=== PATIENT | female | born 1965 | race Caucasian/White ===

== ENCOUNTER 2016-07-17 10:17 | Outpatient (CLI) | payer OTHER | END 2016-07-17 10:18 | disposition home or self-care (01) | DX: Z12.31 Encounter for screening mammogram for malignant neoplasm of breast (principal) ==

== ENCOUNTER 2017-10-31 08:50 | Outpatient (CLI) | payer OTHER ==
[2017-10-31 12:32] LABS: BASOPHILS % (AUTO) 0.6 %; EOSINOPHILS # (AUTO) 0.2 10^3/uL (0.0-0.7); EOSINOPHILS % (AUTO) 3.6 %; LYMPHOCYTES % (AUTO) 21.5 %; MEAN CORPUSCULAR HEMOGLOBIN 28.6 pg (27.0-31.0); MEAN CORPUSCULAR HGB CONC 33.4 g/dL (32.0-36.0); MEAN CORPUSCULAR VOLUME 85.6 fL (81.0-99.0); MEAN PLATELET VOLUME 10.2 fL (7.9-10.8); MONOCYTES # (AUTO) 0.4 10^3/uL (0.0-1.0); NEUTROPHILS % (AUTO) 66.3 %; PLT - PLATELET COUNT 218 10^3/uL (130-450); RED BLOOD COUNT 4.55 10^6/uL (4.20-5.40); RED CELL DISTRIBUTION WIDTH 14.9 % (12.0-15.0); WHITE BLOOD COUNT 4.5 x10^3/uL (4.8-10.8)
[2017-10-31 13:20] LABS: ALBUMIN 4.1 g/dL (3.2-5.5); ALBUMIN/GLOBULIN RATIO 1.2 (1.0-2.2); ALKALINE PHOSPHATASE 61 IU/L (42-121); ALT ALANINE AMINOTRANSFERASE 19 IU/L (10-60); AST ASPARTATE AMINOTRANSFERASE 17 IU/L (10-42); BILIRUBIN,TOTAL 0.5 mg/dL (0.2-1.0); BUN - BLOOD UREA NITROGEN 14 mg/dL (6-20); CALCIUM 9.4 mg/dL (8.5-10.3); CARBON DIOXIDE - CO2 24 mmol/L (21-32); CHLORIDE 108 mmol/L (101-111); CHOL/HDL RATIO 3.7 (<4.4); CHOLESTEROL 156 mg/dL; CREATININE 0.9 mg/dL (0.4-1.0); GFR - MDRD 66 (>89); GLUCOSE 94 mg/dL (70-100); HDL CHOLESTEROL 42 mg/dL; LDL CHOLESTEROL,CALCULATED 81 mg/dL; LDL/HDL RATIO 1.9 (<4.4); SODIUM 140 mmol/L (135-145); TOTAL PROTEIN 7.5 g/dL (6.7-8.2); VLDL CHOLESTEROL 33 mg/dL
== END 2017-10-31 08:51 | disposition home or self-care (01) ==
LOC: LAB.WCP 08:50
PROVIDERS: ATTEND Family Medicine
DX: Z00.00 Encounter for general adult medical examination without abnormal findings (principal); E78.5 Hyperlipidemia, unspecified
CPT/HCPCS: 36415; 80053; 80061; 83721; 84443; 85025

== ENCOUNTER 2017-11-07 08:34 | Outpatient (CLI) | payer OTHER ==
--- NOTE | 2017-11-10 09:27 | Mammography Report ---
Reason: SCREENING MAMMO Procedure Date: 11/07/2017 Accession Number: [id number] / [id number] Procedure: MGN - Screening Mammo Dig Bilat CPT Code: FULL RESULT: EXAM: Screening Mammo Dig Bilat DATE: 11/07/2017 8:55 AM CLINICAL HISTORY: 52-year-old female with history of needle core biopsy of the left breast with benign pathology results. TECHNIQUE: Bilateral CC and MLO views were obtained. COMPARISON: 07/17/2016, 10/10/2014, 07/26/2013, 04/17/2012. FINDINGS: The breasts demonstrate scattered fibroglandular densities bilaterally. A biopsy marker is seen in the left breast. No suspicious masses, clustered microcalcifications, or regions of architectural distortion are identified. IMPRESSION: Benign findings RECOMMENDATION: Routine annual screening unless otherwise clinically indicated. BIRADS CATEGORY 2: Benign findings STANDARD QUALIFYING STATEMENTS: 1. This examination was reviewed with the aid of Computer-Aided Detection (CAD). 2. A negative or benign imaging report should not delay biopsy if clinically suspicious findings are present. Consider surgical consultation if warrented. More than 5% of cancers are not identified by imaging. 3. Dense breasts may obscure an underlying neoplasm.
== END 2017-11-07 08:35 | disposition home or self-care (01) ==
LOC: DI.N 08:34
PROVIDERS: ATTEND Radiology Diagnostic Radiology
DX: Z12.31 Encounter for screening mammogram for malignant neoplasm of breast (principal)
CPT/HCPCS: 77067

== ENCOUNTER 2020-05-22 12:28 | Outpatient (CLI) | payer OTHER ==
--- NOTE | 2020-05-23 11:32 | Mammography Report ---
BILATERAL DIGITAL SCREENING MAMMOGRAM 3D/2D: 05/22/2020 CLINICAL: Routine screening. Comparison is made to exams dated: 11/07/2017 mammogram, 07/17/2016 mammogram, 10/10/2014 mammogram, 07/15 mammogram, 04/17/2012 mammogram, and 09/26/2009 mammogram - [facility]. There are scattered fibroglandular elements in both breasts. There is a biopsy clip in the left breast. No significant masses, calcifications, or other findings are seen in either breast. There has been no significant interval change. IMPRESSION: NEGATIVE There is no mammographic evidence of malignancy. A 1 year screening mammogram is recommended. This exam was interpreted at Station ID: [id number]. NOTE: For mammograms, a report in lay terms will be sent to the patient. Approximately 15% of breast malignancies will not be visualized mammographically. In the management of a palpable breast mass, a negative mammogram must not discourage biopsy of a clinically suspicious lesion. Electronically Signed By: Zac Grover M.D. [email or web address]/albin:05/22/2020 14:22:26 ACR BI-RADS Category 1: Negative 3341F PARENCHYMAL PATTERN: (A) - The breast(s) demonstrate(s) scattered fibroglandular densities. BI-RADS CATEGORY: (1) - 1 RECOMMENDATION: (ANNUAL) - Recommend routine annual screening mammography. [id number] 1 year screening LATERALITY: (B)
== END 2020-05-22 12:29 | disposition home or self-care (01) ==
LOC: DI.N 12:28
DX: Z12.31 Encounter for screening mammogram for malignant neoplasm of breast (principal)

== ENCOUNTER 2020-07-08 14:28 | Emergency (ER) | payer OTHER ==
[2020-07-08] MEDS ORDERED: SODIUM CHLORIDE 0.9% 1,000 ML IV STA (15:07)
[2020-07-08] MEDS ORDERED: DEXAMETHASONE 10 MG/ML VIAL IVP STA (15:08)
[2020-07-08] MEDS ORDERED: KETOROLAC 30 MG/ML VIAL IVP STA (15:08)
--- NOTE | 2020-07-08 15:10 | ED Physician Documentation ---
History of Present Illness - Stated complaint Stated Complaint: C+ SYMPTOMS - History obtained from History obtained from: Patient - Additonal information Additional information: Her recently tested positive for Covid. She became sick 6 days ago with fevers, chills, minimally productive cough, body aches generalized weakness. She denies shortness of breath. She has no significant health issues. Her BMI is 32.5. Review of Systems Constitutional: reports: Fever, Chills, Myalgias, Fatigue Nose: denies: Rhinorrhea / runny nose Throat: denies: Sore throat Respiratory: reports: Cough. denies: Dyspnea PD PAST MEDICAL HISTORY - Present Medications Home Medications: Ambulatory Orders Medication Instructions Recorded Confirmed HYDROcod/ACETAM 5/325 [[place] 5/325] 1 - 2 tab PO Q6H PRN #15 tablet 07/08/20 Ibuprofen [Motrin] 800 mg PO Q8H PRN #30 tablet 07/08/20 Lovastatin [Altoprev] 20 mg PO DAILY 07/08/20 07/08/20 Omeprazole 40 mg PO DAILY 07/08/20 07/08/20 - Allergies Allergies/Adverse Reactions: Allergies Allergy/AdvReac Type Severity Reaction Status Date / Time No Known Drug Allergies Allergy Verified 07/08/20 15:18 PD ED PE NORMAL - Vitals Vital signs reviewed: Yes - General General: Alert and oriented X 3, No acute distress - Neck Neck: Supple, no meningeal sign, No bony TTP - Back Back: No CVA TTP, No spinal TTP - Derm Derm: Normal color, Warm and dry - Extremities Extremities: No edema, No calf tenderness / cord - Neuro Neuro: Alert and oriented X 3, Normal speech Results - Vitals Vitals: Vital Signs - 24 hr 07/08/20 07/08/20 15:09 15:13 Temperature 37.3 C Heart Rate 82 76 Respiratory 25 H 23 Rate Blood Pressure 108/85 H 111/83 H O2 Saturation 96 99 Oxygen O2 Source Room air - Labs Labs: Laboratory Tests 07/08/20 07/08/20 07/08/20 14:52 14:52 14:52 WBC 4.2 L RBC 5.53 H Hgb 15.9 Hct 48.7 H MCV 88.1 MCH 28.8 MCHC 32.6 RDW 13.2 Plt Count 112 L MPV 12.1 H Neut # (Auto) 3.1 Lymph # (Auto) 0.7 L [place] # (Auto) 0.4 Eos # (Auto) 0.0 Baso # (Auto) 0.0 Absolute Nucleated RBC 0.00 Nucleated RBC % 0.0 Sodium 136 Potassium 3.9 Chloride 103 Carbon Dioxide 23 Anion Gap 10.0 BUN 11 Creatinine 0.8 Estimated GFR (MDRD) 75 L Glucose 102 H Calcium 8.9 Nasal Adenovirus (PCR) NOT DETECTED Nasal B. parapertussis DNA (PCR) NOT DETECTED Nasal Coronavir 229E PCR NOT DETECTED Nasal Coronavir HKU1 PCR NOT DETECTED Nasal Coronavir NL63 PCR NOT DETECTED Nasal Coronavir OC43 PCR NOT DETECTED Nasal Enterovir/Rhinovir PCR NOT DETECTED Nasal Influenza B PCR NOT DETECTED Nasal Influenza A PCR NOT DETECTED Nasal Parainfluen 1 PCR NOT DETECTED Nasal Parainfluen 2 PCR NOT DETECTED Nasal Parainfluen 3 PCR NOT DETECTED Nasal Parainfluen 4 PCR NOT DETECTED Nasal RSV (PCR) NOT DETECTED Nasal B.pertussis DNA PCR NOT DETECTED Nasal C.pneumoniae (PCR) NOT DETECTED [place] Human Metapneumo PCR NOT DETECTED Nasal M.pneumoniae (PCR) NOT DETECTED Nasal SARS-CoV-2 (PCR) DETECTED A - Rads (name of study) 1v chest Radiology: EMP read contemporaneously (normal) PD MEDICAL DECISION MAKING - ED course ED course: 55-year-old woman with likely COVID-19, will test for same and watch her for a bit on the monitor. She is not hypoxic though and denies shortness of breath. She does not fit NIH criteria for Mab therapy. 55-year-old woman with classic symptoms of Covid and found to be positive for same. No evidence of Covid pneumonia. Labs are as expected for the condition with expected lymphopenia. Departure - Departure Disposition: 01 Home, Self Care Clinical Impression: COVID-19 Condition: Good Record reviewed to determine appropriate education?: Yes Instructions: ED Viral Syndrome Prescriptions: Ibuprofen [Motrin] 800 mg PO Q8H PRN #30 tablet PRN Reason: PAIN &/OR FEVER HYDROcod/ACETAM 5/325 [[place] 5/325] 1 - 2 tab PO Q6H PRN #15 tablet PRN Reason: Pain Comments: Return if you develop shortness of breath or otherwise worsen. Follow CDC guidelines for strict home quarantine. Forms: Activity restrictions
[2020-07-08 15:20] LABS: EOSINOPHILS % (AUTO) 0.2 %; HCT - HEMATOCRIT 48.7 % (37.0-47.0); HGB - HEMOGLOBIN 15.9 g/dL (12.0-16.0); LYMPHOCYTES # (AUTO) 0.7 10^3/uL (1.5-3.5); LYMPHOCYTES % (AUTO) 16.6 %; MEAN CORPUSCULAR HEMOGLOBIN 28.8 pg (27.0-31.0); MEAN CORPUSCULAR HGB CONC 32.6 g/dL (32.0-36.0); MEAN CORPUSCULAR VOLUME 88.1 fL (81.0-99.0); MEAN PLATELET VOLUME 12.1 fL (7.9-10.8); MONOCYTES # (AUTO) 0.4 10^3/uL (0.0-1.0); MONOCYTES % (AUTO) 8.7 %; NEUTROPHILS # (AUTO) 3.1 10^3/uL (1.5-6.6); NEUTROPHILS % (AUTO) 74.3 %; PLT - PLATELET COUNT 112 10^3/uL (130-450); RED BLOOD COUNT 5.53 10^6/uL (4.20-5.40); RED CELL DISTRIBUTION WIDTH 13.2 % (12.0-15.0); WHITE BLOOD COUNT 4.2 x10^3/uL (4.8-10.8)
[2020-07-08 15:25] LABS: CALCIUM 8.9 mg/dL (8.5-10.3); CREATININE 0.8 mg/dL (0.4-1.0); POTASSIUM 3.9 mmol/L (3.5-5.0)
--- NOTE | 2020-07-08 16:06 | XRAY Report ---
PROCEDURE: Chest 1 View X-Ray INDICATIONS: cough TECHNIQUE: One view of the chest was acquired. COMPARISON: None FINDINGS: Surgical changes and devices: None. Lungs and pleura: An incomplete inspiratory result is noted, with low lung volumes and crowding of t he vascular markings. No focal infiltrates are seen. No large pneumothorax or large pleural effusion can be seen. Mediastinum: Mediastinal contours appear normal. Heart size is normal. Bones and chest wall: No suspicious bony lesions. Overlying soft tissues appear unremarkable. IMPRESSION: Limited portable chest examination, without an acute abnormality identified. Reviewed by: Vitor Harper MD on 07/08/2020 3:05 PM DREW Approved by: Vitor Harper MD on 07/08/2020 3:05 PM DREW Station ID: [id number]
[2020-07-08 16:11] LABS: CORONAVIRUS 229E-RESP PCR NOT DETECTED; CORONAVIRUS HKU1-RESP PCR NOT DETECTED; CORONAVIRUS NL63-RESP PCR NOT DETECTED; CORONAVIRUS OC43-RESP PCR NOT DETECTED
[2020-07-08 16:13] LABS: B. PARAPERTUSSIS- RESP PCR PAN NOT DETECTED; B. PERTUSSIS- RESP PCR PANEL NOT DETECTED; C. PNEUMONIAE- RESP PCR PANEL NOT DETECTED; HUMAN METAPNEUMOVIRUS NOT DETECTED; INFLUENZA A- RESP PCR PANEL NOT DETECTED; INFLUENZA B - RESP PCR PANEL NOT DETECTED; M. PNEUMONIAE- RESP PCR PANEL NOT DETECTED; PARAINFLUENZA VIRUS 1 NOT DETECTED; PARAINFLUENZA VIRUS 2 NOT DETECTED; PARAINFLUENZA VIRUS 3 NOT DETECTED; PARAINFLUENZA VIRUS 4 NOT DETECTED; RHINOVIRUS/ENTEROVIRUS NOT DETECTED; RSV- RESP PCR PANEL NOT DETECTED; SARS-CoV-2 -RESP PCR PANEL DETECTED
[2020-07-08 17:13] VITALS: BP 106/75
== END 2020-07-08 17:20 | disposition home or self-care (01) ==
LOC: ED 14:28
DX: U07.1 COVID-19 (principal)
CPT/HCPCS: 0202U; 36415; 71045; 80048; 85025; 96374; 99284

== ENCOUNTER 2020-07-11 15:29 | Outpatient (CLI) | payer OTHER | END 2020-07-11 15:30 | disposition critical access hospital (66) | LOC: EMS 15:29 | DX: R53.1 Weakness (principal); R55 Syncope and collapse | CPT/HCPCS: A0425; A0429 ==

== ENCOUNTER 2020-07-11 15:57 | Inpatient (IN) | payer OTHER ==
[2020-07-11] MEDS ORDERED: ONDANSETRON 4 MG/2 ML VIAL IVP STA (16:12)
[2020-07-11] MEDS ORDERED: SODIUM CHLORIDE 0.9% 1,000 ML IV STA ×2 (16:12→16:13)
--- NOTE | 2020-07-11 16:18 | ED Physician Documentation ---
History of Present Illness - Stated complaint Stated Complaint: WEAKNESS/COV + - Additonal information Additional information: 55-year-old female presents the emergency department with worsening Covid symptoms generalized weakness and near syncope. She became sick about 9 to 10 d ays ago. Her had tested positive for COVID-19. She was seen in this ER 3 days ago for similar discharged home. Patient reports that since going home she feels persistently weak very little appetite multiple near syncopal episodes especially with ambulation. She is short of breath with ambulating. Here on room air she has saturations between 90 and 93%. She does endorse a cough but no fevers. Generalized myalgias. Patient does not have a history of diabetes, chronic kidney disease or immune suppression. Meds: Omeprazole, Lipitor. Social: Non-smoker. Rare EtOH. Review of Systems Constitutional: reports: Chills, Myalgias. denies: Fever Eyes: reports: Reviewed and negative Ears: reports: Reviewed and negative Nose: reports: Reviewed and negative Throat: reports: Dental pain / toothache Cardiac: reports: Reviewed and negative Respiratory: reports: Dyspnea, Cough. denies: Hemoptysis, Wheezing GI: reports: Nausea. denies: Abdominal Pain, Vomiting, Constipation, Diarrhea : denies: Dysuria, Frequency, Hesitancy Skin: denies: Rash, Lesions Musculoskeletal: denies: Neck pain, Back pain Neurologic: reports: Generalized weakness. denies: Focal weakness, Numbness, Difficulty speaking, Near syncope, Syncope, Seizure, Confused, Headache, Head injury PD PAST MEDICAL HISTORY - Past Medical History Cardiovascular: High cholesterol GI: GERD - Past Surgical History Past Surgical History: No - Present Medications Home Medications: Ambulatory Orders Medication Instructions Recorded Confirmed HYDROcod/ACETAM 5/325 [[place] 5/325] 1 - 2 tab PO Q6H PRN #15 tablet 07/08/20 07/11/20 Ibuprofen [Motrin] 800 mg PO Q8H PRN #30 tablet 07/08/20 07/11/20 Lovastatin [Altoprev] 20 mg PO DAILY 07/08/20 07/11/20 Omeprazole 40 mg PO DAILY 07/08/20 07/11/20 - Allergies Allergies/Adverse Reactions: Allergies Allergy/AdvReac Type Severity Reaction Status Date / Time No Known Drug Allergies Allergy Verified 07/08/20 15:18 - Social History Does the pt smoke?: No Smoking Status: Never smoker Does the pt drink ETOH?: No Does the pt have substance abuse?: No - Immunizations Immunizations are current?: Yes PD ED PE EXPANDED - General General: Alert - Cardiac Cardiac: Regular Rate, Tachy, Radial strong equal, Pedal strong equal, Cap refill < 2 sec - Respiratory Respiratory: Clear to ausultation sabine, Other (Mild tachypnea. Respiratory rate of 30. Saturating 92% room air.). No: Distress, Labored - Abdomen Abdomen: Normal Bowel sounds. No: Tender to palpation - Derm Derm: Normal color, Warm and dry, Cyanotic (mildly around lips). No: Pale, Jaundiced - Extremities Extremities: Normal. No: Deformity, Tenderness - Neuro Neuro: Alert and Oriented X 3, CNII-XII intact - GCS Eye Opening: Spontaneous Motor: Obeys Commands Verbal: Oriented Total: 15 Results - Vitals Vitals: Vital Signs - 24 hr 07/11/20 07/11/20 07/11/20 15:51 16:35 16:50 Temperature 37.1 C Heart Rate 107 H 104 H 104 H Respiratory 32 H 30 H 26 H Rate Blood Pressure 124/81 H 118/67 105/74 O2 Saturation 90 L 93 95 07/11/20 17:22 Temperature Heart Rate 101 H Respiratory 31 H Rate Blood Pressure 99/66 O2 Saturation 93 Oxygen O2 Source Room air - Labs Labs: Laboratory Tests 07/11/20 07/11/20 07/11/20 16:25 16:42 16:42 WBC 10.1 RBC 5.69 H Hgb 16.0 Hct 50.6 H MCV 88.9 MCH 28.1 MCHC 31.6 L RDW 14.1 Plt Count 162 MPV 11.6 H Neut # (Auto) 9.0 H Lymph # (Auto) 0.5 L [place] # (Auto) 0.5 Eos # (Auto) 0.0 Baso # (Auto) 0.0 Absolute Nucleated RBC 0.00 Nucleated RBC % 0.0 Sodium 135 Potassium 4.2 Chloride 100 L Carbon Dioxide 23 Anion Gap 12.0 BUN 14 Creatinine 0.8 Estimated GFR (MDRD) 75 L Glucose 109 H Calcium 8.6 Total Bilirubin 0.8 AST 48 H ALT 26 Alkaline Phosphatase 44 Total Protein 6.3 L Albumin 2.9 L Globulin 3.4 Albumin/Globulin Ratio 0.9 L Lipase 26 Ethyl Alcohol < 5.0 PD MEDICAL DECISION MAKING - ED course Complexity details: reviewed results, re-evaluated patient, d/w patient ED course: 55-year-old female who is known to be COVID-19 positive presents the emergency department with worsening shortness of air near syncope generalized weakness and nausea. She presented here are on room air with a saturation of 90%. With any activity or minimal exertion her saturations declined into the high 80s. Chest x-ray suggests an early atypical pneumonia or pulmonary edema. She does not have fever or leukocytosis but she is moderately tachypneic. Given worsening symptoms in the setting of COVID-19 we will bring her in for further observation and evaluation. Unfortunately she does not meet criteria for monoclonal antibodies she is not considered high risk. I discussed this case with Dr. Boles admitting hospitalist Departure - Departure Disposition: 66 [facility] DC/Xfer Clinical Impression: COVID-19, Hypoxia Discharge Date/Time: 07/11/20 18:20
[2020-07-11 16:31] LABS: BASOPHILS % (AUTO) 0.2 %; HCT - HEMATOCRIT 50.6 % (37.0-47.0); LYMPHOCYTES # (AUTO) 0.5 10^3/uL (1.5-3.5); LYMPHOCYTES % (AUTO) 5.1 %; MEAN CORPUSCULAR HEMOGLOBIN 28.1 pg (27.0-31.0); MEAN CORPUSCULAR HGB CONC 31.6 g/dL (32.0-36.0); MEAN CORPUSCULAR VOLUME 88.9 fL (81.0-99.0); MEAN PLATELET VOLUME 11.6 fL (7.9-10.8); MONOCYTES # (AUTO) 0.5 10^3/uL (0.0-1.0); MONOCYTES % (AUTO) 5.3 %; NEUTROPHILS % (AUTO) 88.8 %; PLT - PLATELET COUNT 162 10^3/uL (130-450); RED BLOOD COUNT 5.69 10^6/uL (4.20-5.40); RED CELL DISTRIBUTION WIDTH 14.1 % (12.0-15.0); WHITE BLOOD COUNT 10.1 x10^3/uL (4.8-10.8)
--- NOTE | 2020-07-11 16:48 | XRAY Report ---
PROCEDURE: Chest 1 View X-Ray INDICATIONS: chest pain TECHNIQUE: One view of the chest was acquired. COMPARISON: 07/08/2020 FINDINGS: Surgical changes and devices: None. Lungs and pleura: No pleural effusions or pneumothorax. Lungs are mildly edematous. Mediastinum: Mediastinal contours appear normal. Heart size is normal. Bones and chest wall: No suspicious bony lesions. Overlying soft tissues appear unremarkable. IMPRESSION: The appearance of the lung parenchyma is mildly edematous, having increased in this pattern of alveol ar edema from the comparison study to a mild degree from 3 days ago. Atypical pneumonia could be pres ent producing this appearance. However, acute CHF without cardiomegaly is a potential alternative cau se. Reviewed by: Constantine Bazan MD on 07/11/2020 4:47 PM PDT Approved by: Constantine Bazan MD on 07/11/2020 4:47 PM PDT Station ID: [id number]
[2020-07-11 17:00] LABS: ALBUMIN 2.9 g/dL (3.2-5.5); ALBUMIN/GLOBULIN RATIO 0.9 (1.0-2.2); BILIRUBIN,TOTAL 0.8 mg/dL (0.2-1.0); CALCIUM 8.6 mg/dL (8.5-10.3); CREATININE 0.8 mg/dL (0.4-1.0); POTASSIUM 4.2 mmol/L (3.5-5.0); TOTAL PROTEIN 6.3 g/dL (6.7-8.2)
[2020-07-11] MEDS ORDERED: SODIUM CHLORIDE FLUSH 0.9% 10 ML SYRINGE IVP PRN (17:33)
[2020-07-11] MEDS ORDERED: oxyCODONE 5 MG TABLET PO PRN (17:33)
[2020-07-11] MEDS ORDERED: ONDANSETRON ODT 4 MG TABLET TL PRN (17:33)
[2020-07-11] MEDS ORDERED: ACETAMINOPHEN 325 MG TABLET PO PRN (17:33)
[2020-07-11] MEDS ORDERED: IBUPROFEN 400 MG TABLET PO PRN (17:33)
[2020-07-11] MEDS ORDERED: DEXTROSE 5% IV SCH (17:45)
[2020-07-11] MEDS ORDERED: [UNRECOGNIZED DRUG - OTHER] IV SCH (17:45)
--- OUTSIDE RECORDS SUMMARY | 2020-07-11 18:03 | EXTERNAL MEDICAL SUMMARY RPT | Continuity of Care Document ---
:1965 Demographics Phone Unavailable Preferred Language Unknown Marital Status Unknown Cheondoism Affiliation Unknown Race Unknown Ethnic Group Unknown Author Organization [facility] Address [address] [place] [address] Phone Social History date description facility [phone]
--- NOTE | 2020-07-11 18:10 | HISTORY & PHYSICAL EXAMINATION ---
Chief Complaint - Chief Complaint Chief Complaint: shortness of breath History of Present Illness - Admitted From Admitted From:: ER - History Obtained From Records Reviewed: [facility] History obtained from: pt Exam Limitations: no - History of Present Illness HPI Comment/Other: This is a 55-years old female with a past medical history significant for hyperlipidemia, GERD, who present ER complain of shortness of breath, worsening Covid symptoms. Patient report last Friday she present to ER showing shortness breathing then she tested positive for the COVID-19. Her was Positive in July 03, then her son show positive. Her all 13 colleague were Covid 19 positive after one person traveled back from [place]. she report she had fever, chill and night sweating at home. her and her son both became better but she continue shortness of breath and worsening symptoms. she present cough, specially felt significant shortness of breath when she was at exertion. she report nausea but no vomiting, loss of appetite. She denies chest pain, abdominal pain, vomiting. IN ER, she is afebrile, HR is 107, normative blood pressure, RR 32 and 90% sats on room air. Route lab test show pt was Covid 19 positive at 07/08/20, other CBC and CMP are unremarkable. CXR reveals atypical pneumonia appearance. Discussed the care goal with pt, pt request full code. History - Past Medical History Cardiovascular: reports: High cholesterol GI: reports: GERD MRSA Hx?: No - Family & Social History Family History: Mother: Alive and Well Family History Comment/Other: Patient report she was Unknown her father medical history, she reported her mother has diabetic medical history Social History Notes: She report she has never cigarette smoking, alcohol or drug issue - POLST Patient has POLST: No Meds/Allgy - Home Medications Home Medications: Ambulatory Orders Medication Instructions Recorded Confirmed HYDROcod/ACETAM 5/325 [[place] 5/325] 1 - 2 tab PO Q6H PRN #15 tablet 07/08/20 07/11/20 Ibuprofen [Motrin] 800 mg PO Q8H PRN #30 tablet 07/08/20 07/11/20 Lovastatin [Altoprev] 20 mg PO DAILY 07/08/20 07/11/20 Omeprazole 40 mg PO DAILY 07/08/20 07/11/20 - Allergies Allergies/Adverse Reactions: Allergies Allergy/AdvReac Type Severity Reaction Status Date / Time No Known Drug Allergies Allergy Verified 07/08/20 15:18 Review of Systems - Constitutional Constitutional: reports: Fatigue, Fever, Chills, Malaise, Poor appetite, Night sweats. denies: Weakness, Diaphoresis - Eyes Eyes: denies: Pain, Blurred vision, Field loss, Vision loss - Ears, Nose & Throat Ears, Nose & Throat: denies: Ear pain, Tinnitus, Vertigo, Nosebleeds, Bleeding gums - Cardiovascular Cariovascular: denies: Irregular heart rate, Palpitations, Chest pain - Respiratory Respiratory: reports: Cough, Sputum production, SOB with exertion. denies: Wheezing, Snoring, Hemoptysis, Orthopnea, SOB at rest, Apnea - Gastrointestinal Gastrointestinal: reports: Nausea. denies: Abdominal pain, Constipation, Diarrhea, Rectal bleeding, Black stools, Bloody stools, Vomiting - Genitourinary Genitourinary: denies: Dysuria, Urgency, Incontinence - Musculoskeletal Musculoskeletal: denies: Back pain, Muscle aches, Limited range of motion - Integumentary Integumentary: denies: Rash, Dryness, Lumps - Neurological Neurological: denies: General weakness, Focal weakness, Headache, Dizziness, Numbness, Memory problems, Abnormal gait, Seizures, Incoordination, Slurred speech - Psychiatric Psychiatric: denies: Depression, Suicidal, Delusions - Endocrine Endocrine: denies: Polyuria, Polyphagia - Hematologic/Lymphatic Hematologic/Lymphatic: denies: Anemia, Blood clots Prior Level of Functionality: Patient is independent in the home Exam - Vital Signs Vital Signs: Vital Signs x48h Temp Pulse Resp BP Pulse Ox 07/11/20 17:22 101 H 31 H 99/66 93 07/11/20 16:50 104 H 26 H 105/74 95 07/11/20 16:35 104 H 30 H 118/67 93 07/11/20 15:51 37.1 C 107 H 32 H 124/81 H 90 L - Physical Exam General Appearance: positive: Alert, Mild distress. negative: Lethargic Eyes Bilateral: positive: Normal inspection, PERRL, No lid inflammation ENT: positive: ENT inspection nml, No signs of dehydration. negative: Purulent nasal drainage Neck: positive: Nml inspection, Trachea midline. negative: Thyromegaly, Tracheal deviation Respiratory: positive: Chest non-tender, Rales. negative: No respiratory distress, Breath sounds nml, Wheezes Cardiovascular: positive: Regular rate & rhythm, No murmur, Tachycardia. negative: Bradycardia, Systolic murmur, Diastolic murmur Peripheral Pulses: positive: 2+ Abdomen: positive: Non-tender, Nml bowel sounds, No distention. negative: Tenderness Back: positive: Nml inspection Skin: positive: Color nml, Warm, Dry. negative: Cyanosis, Diaphoresis, Pallor Extremities: positive: Non-tender, Nml appearance. negative: Pedal edema Neurologic/Psychiatric: positive: Oriented x3, Motor nml, Sensation nml, Mood/affect nml. negative: Weakness, Sensory loss, Facial droop, Slurred/abnml speech, Depressed mood/affect Conclusion/Plan - Problem List (1) Respiratory failure with hypoxia Conclusion/Plan: pt present shortness of breath specially at exertion. pt has 90% sats on room air with RR 32, and mild tachycardia, and pt is Covid 19 positive. 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 we will order Remdesivir, Decatron, and Lovenox, Supplemental oxygen as needed, intravenous IV fluids. isolation precaution per Covid 19. (3) HLD (hyperlipidemia) Conclusion/Plan: Will resume home statin. (4) GERD (gastroesophageal reflux disease) Conclusion/Plan: Resume patient's home meds, PPI - Lab Results Fish Bones: 07/11/20 16:25 07/11/20 16:42 Core Measures - Anticipated LOS I expect patient to be DC'd or transferred within 96 hours.: Yes - DVT/VTE - Prophylaxis VTE/DVT Device ordered at admit?: Yes VTE/DVT Prophylaxis med ordered at admit?: Yes
[2020-07-11] MEDS ORDERED: REMDESIVIR 100MG VIAL 200 MG in SODIUM CHLORIDE 0.9% 250 ML IV ONE (19:00)
[2020-07-11] MEDS: SODIUM CHLORIDE 0.9% 1,000 ML IV SCH (19:15)
[2020-07-11 19:31] LABS: BILIRUBIN,URINE NEGATIVE (NEGATIVE); GLUCOSE, URINE (UA) NEGATIVE (NEGATIVE); KETONES,URINE (UA) 40 mg/dL (NEGATIVE); LEUKOCYTE ESTERASE, URINE NEGATIVE (NEGATIVE); NITRITE,URINE NEGATIVE (NEGATIVE); OCCULT BLOOD,URINE SMALL (NEGATIVE); PROTEIN,URINE 30 mg/dL (NEGATIVE); UROBILINOGEN,URINE 1 (NORMAL) E.U./dL (NORMAL)
[2020-07-11 19:35] LABS: CLARITY,URINE HAZY (CLEAR)
[2020-07-11 19:42] LABS: BACTERIA,URINE Few /HPF (None Seen); MUCUS,URINE Few Strands; RBC,URINE 0-5 /HPF (0-5); SQUAMOUS EPITHELIAL CELL,UR FEW Squamous (<= Few); WBC,URINE 0-3 /HPF (0-5)
[2020-07-11] MEDS: ONDANSETRON 4 MG/2 ML VIAL IVP PRN (20:22)
[2020-07-11] MEDS: ATORVASTATIN 10 MG TABLET PO SCH (20:28)
[2020-07-12] MEDS: SODIUM CHLORIDE FLUSH 0.9% 10 ML SYRINGE IVP SCH ×3 (04:24→16:08)
[2020-07-12] MEDS: ONDANSETRON 4 MG/2 ML VIAL IVP PRN (04:25)
[2020-07-12] MEDS: SODIUM CHLORIDE 0.9% 1,000 ML IV SCH ×2 (05:19→16:08)
[2020-07-12 05:39] LABS: BASOPHILS % (AUTO) 0.1 %; HCT - HEMATOCRIT 42.9 % (37.0-47.0); HGB - HEMOGLOBIN 13.8 g/dL (12.0-16.0); LYMPHOCYTES # (AUTO) 0.6 10^3/uL (1.5-3.5); LYMPHOCYTES % (AUTO) 7.3 %; MEAN CORPUSCULAR HEMOGLOBIN 28.8 pg (27.0-31.0); MEAN CORPUSCULAR HGB CONC 32.2 g/dL (32.0-36.0); MEAN CORPUSCULAR VOLUME 89.4 fL (81.0-99.0); MEAN PLATELET VOLUME 11.4 fL (7.9-10.8); MONOCYTES # (AUTO) 0.6 10^3/uL (0.0-1.0); NEUTROPHILS % (AUTO) 85.1 %; PLT - PLATELET COUNT 162 10^3/uL (130-450); RED CELL DISTRIBUTION WIDTH 14.3 % (12.0-15.0); WHITE BLOOD COUNT 8.3 x10^3/uL (4.8-10.8)
[2020-07-12 05:47] LABS: CALCIUM 7.6 mg/dL (8.5-10.3); CREATININE 0.7 mg/dL (0.4-1.0); POTASSIUM 3.8 mmol/L (3.5-5.0)
[2020-07-12] MEDS: PANTOPRAZOLE 40 MG TABLET PO SCH (06:35)
[2020-07-12] MEDS: ENOXAPARIN 40 MG/0.4 ML SYRINGE SUBQ SCH (08:26)
[2020-07-12] MEDS: DEXAMETHASONE 4 MG/ML VIAL IVP SCH (08:26)
--- NOTE | 2020-07-12 14:58 | PROVIDER PROGRESS NOTE ---
Assessment/Plan - Problem List (1) Respiratory failure with hypoxia Assessment/Plan: 07/12 pt has no respiratory distress at rest but distressful on exertion. now pt has 94% on 3 liter of O2, and comfortable rest in the bed. pt still some nausea and poor appetite now. will advance her diet as tolerated. continue Remdesivir, Decatron, and Lovenox, Continue supplemental oxygen as needed, continue closely monitor patient with vital signs. pt present shortness of breath specially at exertion. pt has 90% sats on room air with RR 32, and mild tachycardia, and pt is Covid 19 positive. 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 we will order Remdesivir, Decatron, and Lovenox, Supplemental oxygen as needed, intravenous IV fluids. isolation precaution per Covid 19. (3) HLD (hyperlipidemia) Conclusion/Plan: Will resume home statin. (4) GERD (gastroesophageal reflux disease) Conclusion/Plan: Resume patient's home meds, PPI - Current Meds Current Meds: Current Medications Generic Name Dose Route Start Last Admin Trade Name Freq PRN Reason Stop Dose Admin Atorvastatin Calcium 10 mg 07/11/20 21:00 07/11/20 20:28 Atorvastatin 10 Mg Tablet PO Not Given QPM EMANUEL Dexamethasone 6 mg 07/12/20 09:00 07/12/20 08:26 Dexamethasone 4 Mg/Ml Vial IVP 6 mg DAILY EMANUEL Administration Enoxaparin Sodium 40 mg 07/12/20 09:00 07/12/20 08:26 Enoxaparin 40 Mg/0.4 Ml Syringe SUBQ 40 mg DAILY EMNAUEL Administration Ibuprofen 400 mg 07/11/20 17:33 07/11/20 19:11 Ibuprofen 400 Mg Tablet PO 400 mg Q4HR PRN Administration Pain 1 to 4 Ondansetron HCl 4 mg 07/11/20 17:33 07/12/20 04:25 Ondansetron 4 Mg/2 Ml Vial IVP 4 mg Q6HR PRN Administration Nausea / Vomiting Oxycodone HCl 5 mg 07/11/20 17:33 07/12/20 05:20 Oxycodone 5 Mg Tablet PO 5 mg Q4HR PRN Administration Pain 5 to 7 Pantoprazole Sodium 40 mg 07/12/20 07:00 07/12/20 06:35 Pantoprazole 40 Mg Tablet PO 40 mg QDAC EMANUEL Administration Sodium Chloride 10 ml 07/12/20 01:00 07/12/20 08:27 Sodium Chloride Flush 0.9% 10 Ml Syringe IVP 10 ml 0100,0900,1700 EMANUEL Administration - Lab Result Fish Bone Diagrams: 07/12/20 04:55 07/12/20 04:55 - Additional Planning My Orders: My Active Orders 07/11/20 18:33 Infection Precautions [RC] QSHIFT 07/11/20 21:00 Atorvastatin [Lipitor] 10 mg PO QPM 07/12/20 Breakfast Full Liquid Diet [DIET] 07/12/20 07:00 Pantoprazole [Protonix] 40 mg PO QDAC 07/12/20 09:00 Enoxaparin [Lovenox] 40 mg SUBQ DAILY Subjective - Subjective Patient Reports: Feeling Better Objective Vital Signs: Vital Signs - 24 hr 07/11/20 07/11/20 07/11/20 15:51 16:35 16:50 Temperature 37.1 C Heart Rate 107 H 104 H 104 H Heart Rate [ Brachial] Heart Rate [ Carotid] Respiratory 32 H 30 H 26 H Rate Blood Pressure 124/81 H 118/67 105/74 Blood Pressure [Left Brachial artery] O2 Saturation 90 L 93 95 07/11/20 07/11/20 07/11/20 17:22 18:14 18:28 Temperature 36.8 C Heart Rate 101 H 104 H Heart Rate [ Brachial] Heart Rate [ 91 Carotid] Respiratory 31 H 20 20 Rate Blood Pressure 99/66 105/81 H Blood Pressure 94/75 [Left Brachial artery] O2 Saturation 93 95 97 07/11/20 07/11/20 07/12/20 20:20 20:26 00:00 Temperature 37 C 36.4 C L Heart Rate Heart Rate [ 92 98 Brachial] Heart Rate [ 99 Carotid] Respiratory 16 22 Rate Blood Pressure Blood Pressure 108/66 101/65 [Left Brachial artery] O2 Saturation 92 98 04/07/12/20 07/12/20 05:25 08:15 08:24 Temperature 36.7 C 36.7 C 36.8 C Heart Rate 92 Heart Rate [ 92 97 Brachial] Heart Rate [ Carotid] Respiratory 22 20 Rate Blood Pressure Blood Pressure 111/67 114/65 [Left Brachial artery] O2 Saturation 95 98 92 07/12/20 07/12/20 07/12/20 11:06 12:28 13:55 Temperature 36.6 C 37.1 C Heart Rate Heart Rate [ 87 90 93 Brachial] Heart Rate [ Carotid] Respiratory 20 20 Rate Blood Pressure Blood Pressure 126/70 111/79 [Left Brachial artery] O2 Saturation 92 94 94 Oxygen O2 Source Nasal cannula I&O (Last 24 Hrs): Intake and Output Totals x24h 07/10/20 07/11/20 07/12/20 23:59 23:59 23:59 Intake Total 2750 2496.667 Output Total 800 2100 Balance 1950 396.667 General: Alert, Oriented x3, Cooperative, No acute distress HEENT: Atraumatic, PERRLA Neck: Supple Lymphatic: no adenopathy Neuro: Alert, Non Focal, Oriented Times 3 Cardiovascular: Regular rate, Normal S1, Normal S2 Respiratory: Chest non-tender, No respiratory distress Abdomen: Normal bowel sounds, Soft, No tenderness Extremities: Normal pulses - Results Results: Laboratory Results WBC 8.3 x10^3/uL (4.8-10.8) 07/12/20 04:55 RBC 4.80 10^6/uL (4.20-5.40) 07/12/20 04:55 Hgb 13.8 g/dL (12.0-16.0) 07/12/20 04:55 Hct 42.9 % (37.0-47.0) 07/12/20 04:55 MCV 89.4 fL (81.0-99.0) 07/12/20 04:55 MCH 28.8 pg (27.0-31.0) 07/12/20 04:55 MCHC 32.2 g/dL (32.0-36.0) 07/12/20 04:55 RDW 14.3 % (12.0-15.0) 07/12/20 04:55 Plt Count 162 10^3/uL (130-450) 07/12/20 04:55 MPV 11.4 fL (7.9-10.8) H 07/12/20 04:55 Neut # (Auto) 7.0 10^3/uL (1.5-6.6) H 07/12/20 04:55 Lymph # (Auto) 0.6 10^3/uL (1.5-3.5) L 07/12/20 04:55 [place] # (Auto) 0.6 10^3/uL (0.0-1.0) 07/12/20 04:55 Eos # (Auto) 0.0 10^3/uL (0.0-0.7) 07/12/20 04:55 Baso # (Auto) 0.0 10^3/uL (0.0-0.1) 07/12/20 04:55 Absolute Nucleated RBC 0.00 x10^3/uL 07/12/20 04:55 Nucleated RBC % 0.0 /100WBC 07/12/20 04:55 Sodium 135 mmol/L (135-145) 07/12/20 04:55 Potassium 3.8 mmol/L (3.5-5.0) 07/12/20 04:55 Chloride 104 mmol/L (101-111) 07/12/20 04:55 Carbon Dioxide 23 mmol/L (21-32) 07/12/20 04:55 Anion Gap 8.0 (6-13) 07/12/20 04:55 BUN 11 mg/dL (6-20) 07/12/20 04:55 Creatinine 0.7 mg/dL (0.4-1.0) 07/12/20 04:55 Estimated GFR (MDRD) 88 (>89) L 07/12/20 04:55 Glucose 104 mg/dL (70-100) H 07/12/20 04:55 Calcium 7.6 mg/dL (8.5-10.3) L 07/12/20 04:55 Total Bilirubin 0.8 mg/dL (0.2-1.0) 07/11/20 16:42 AST 48 IU/L (10-42) H 07/11/20 16:42 ALT 26 IU/L (10-60) 07/11/20 16:42 Alkaline Phosphatase 44 IU/L (42-121) 07/11/20 16:42 Total Protein 6.3 g/dL (6.7-8.2) L 07/11/20 16:42 Albumin 2.9 g/dL (3.2-5.5) L 07/11/20 16:42 Globulin 3.4 g/dL (2.1-4.2) 07/11/20 16:42 Albumin/Globulin Ratio 0.9 (1.0-2.2) L 07/11/20 16:42 Lipase 26 U/L (22-51) 07/11/20 16:42 Urine Color YELLOW 07/11/20 19:20 Urine Clarity HAZY (CLEAR) 07/11/20 19:20 Urine pH 6.0 PH (5.0-7.5) 07/11/20 19:20 Ur Specific [place] 1.020 (1.002-1.030) 07/11/20 19:20 Urine Protein 30 mg/dL (NEGATIVE) H 07/11/20 19:20 Urine Glucose (UA) NEGATIVE mg/dL (NEGATIVE) 07/11/20 19:20 Urine Ketones 40 mg/dL (NEGATIVE) H 07/11/20 19:20 Urine Occult Blood SMALL (NEGATIVE) H 07/11/20 19:20 Urine Nitrite NEGATIVE (NEGATIVE) 07/11/20 19:20 Urine Bilirubin NEGATIVE (NEGATIVE) 07/11/20 19:20 Urine Urobilinogen 1 (NORMAL) E.U./dL (NORMAL) 07/11/20 19:20 Ur Leukocyte Esterase NEGATIVE (NEGATIVE) 07/11/20 19:20 Urine RBC 0-5 /HPF (0-5) 07/11/20 19:20 Urine WBC 0-3 /HPF (0-5) 07/11/20 19:20 Ur Squamous Epith Cells FEW Squamous (<= Few) 07/11/20 19:20 Urine Bacteria Few /HPF (None Seen) 07/11/20 19:20 Urine Mucus Few Strands 07/11/20 19:20 Ur Microscopic Review INDICATED 07/11/20 19:20 Urine Culture Comments NOT INDICATED 07/11/20 19:20 Ethyl Alcohol < 5.0 mg/dL 07/11/20 16:42 ABX Reporting Has patient been on IV antibiotics over the past 48 hours?: No Current Medications - Current Medications Current Medications: Active Medications Acetaminophen (Acetaminophen 325 Mg Tablet) 650 mg PO Q4HR PRN PRN Reason: Pain 1 to 4 Atorvastatin Calcium (Atorvastatin 10 Mg Tablet) 10 mg PO QPM [facility] Last Admin: 07/11/20 20:28 Dose: Not Given Documented by: Benzonatate (Benzonatate 100 Mg Capsule) 100 mg PO TID PRN PRN Reason: Cough Dexamethasone (Dexamethasone 4 Mg/Ml Vial) 6 mg IVP DAILY [facility] Last Admin: 07/12/20 08:26 Dose: 6 mg Documented by: Enoxaparin Sodium (Enoxaparin 40 Mg/0.4 Ml Syringe) 40 mg SUBQ DAILY [facility] Last Admin: 07/12/20 08:26 Dose: 40 mg Documented by: Remdesivir 100 mg/ Sodium (Chloride) 100 mls @ 200 mls/hr IV 1900 [facility] Stop: 07/15/20 19:29 Ibuprofen (Ibuprofen 400 Mg Tablet) 400 mg PO Q4HR PRN PRN Reason: Pain 1 to 4 Last Admin: 07/11/20 19:11 Dose: 400 mg Documented by: Ondansetron HCl (Ondansetron Odt 4 Mg Tablet) 4 mg TL Q6HR PRN PRN Reason: Nausea / Vomiting Ondansetron HCl (Ondansetron 4 Mg/2 Ml Vial) 4 mg IVP Q6HR PRN PRN Reason: Nausea / Vomiting Last Admin: 07/12/20 04:25 Dose: 4 mg Documented by: Oxycodone HCl (Oxycodone 5 Mg Tablet) 5 mg PO Q4HR PRN PRN Reason: Pain 5 to 7 Last Admin: 07/12/20 05:20 Dose: 5 mg Documented by: Pantoprazole Sodium (Pantoprazole 40 Mg Tablet) 40 mg PO QDAC [facility] Last Admin: 07/12/20 06:35 Dose: 40 mg Documented by: Sodium Chloride (Sodium Chloride Flush 0.9% 10 Ml Syringe) 10 ml IVP PRN PRN PRN Reason: NEEDED PER PROVIDER ORDERS Sodium Chloride (Sodium Chloride Flush 0.9% 10 Ml Syringe) 10 ml IVP 0100,0900,1700 [facility] Last Admin: 07/12/20 08:27 Dose: 10 ml Documented by: Lovastatin [Altoprev] 20 mg PO DAILY 07/08/20 Omeprazole 40 mg PO DAILY 07/08/20
[2020-07-12] MEDS: REMDESIVIR 100MG VIAL 100 MG in SODIUM CHLORIDE 0.9% 100ML 100 ML IV SCH (18:30)
[2020-07-12] MEDS: ATORVASTATIN 10 MG TABLET PO SCH (21:42)
[2020-07-13] MEDS: SODIUM CHLORIDE FLUSH 0.9% 10 ML SYRINGE IVP SCH ×3 (00:20→16:56)
[2020-07-13] MEDS: SODIUM CHLORIDE 0.9% 1,000 ML IV SCH (04:12)
[2020-07-13 05:32] LABS: BASOPHILS % (AUTO) 0.1 %; HCT - HEMATOCRIT 41.5 % (37.0-47.0); LYMPHOCYTES # (AUTO) 0.5 10^3/uL (1.5-3.5); LYMPHOCYTES % (AUTO) 7.5 %; MEAN CORPUSCULAR HEMOGLOBIN 28.3 pg (27.0-31.0); MEAN CORPUSCULAR HGB CONC 31.3 g/dL (32.0-36.0); MEAN CORPUSCULAR VOLUME 90.2 fL (81.0-99.0); MEAN PLATELET VOLUME 11.1 fL (7.9-10.8); MONOCYTES # (AUTO) 0.7 10^3/uL (0.0-1.0); NEUTROPHILS # (AUTO) 5.7 10^3/uL (1.5-6.6); NEUTROPHILS % (AUTO) 81.7 %; PLT - PLATELET COUNT 211 10^3/uL (130-450); RED CELL DISTRIBUTION WIDTH 14.6 % (12.0-15.0)
[2020-07-13 05:38] LABS: CALCIUM 8.1 mg/dL (8.5-10.3); CREATININE 0.7 mg/dL (0.4-1.0); POTASSIUM 3.9 mmol/L (3.5-5.0)
[2020-07-13] MEDS: BENZONATATE 100 MG CAPSULE PO PRN ×3 (06:17→16:56)
[2020-07-13] MEDS: PANTOPRAZOLE 40 MG TABLET PO SCH (06:17)
[2020-07-13] MEDS: polyethylene glycoL 3350 17 GM PACKET PO SCH (09:14)
[2020-07-13] MEDS: ENOXAPARIN 40 MG/0.4 ML SYRINGE SUBQ SCH (09:14)
[2020-07-13] MEDS: DEXAMETHASONE 4 MG/ML VIAL IVP SCH (09:15)
--- NOTE | 2020-07-13 15:15 | PROVIDER PROGRESS NOTE ---
Assessment/Plan - Problem List (1) Respiratory failure with hypoxia Assessment/Plan: 07/13 Patient reported she feel better, She asked advance her diet, She has more appetite. Her O2 sat is 95% on 1 L oxygen, Improved. We will continue Remdesivir, Decatron, and Lovenox, IVF, Continue supplemental oxygen as needed, continue closely monitor patient with vital signs. 07/12 pt has no respiratory distress at rest but distressful on exertion. now pt has 94% on 3 liter of O2, and comfortable rest in the bed. pt still some nausea and poor appetite now. will advance her diet as tolerated. continue Remdesivir, Decatron, and Lovenox, Continue supplemental oxygen as needed, continue closely monitor patient with vital signs. pt present shortness of breath specially at exertion. pt has 90% sats on room ai r with RR 32, and mild tachycardia, and pt is Covid 19 positive. 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 we will order Remdesivir, Decatron, and Lovenox, Supplemental oxygen as needed, intravenous IV fluids. isolation precaution per Covid 19. (3) HLD (hyperlipidemia) Conclusion/Plan: Will resume home statin. (4) GERD (gastroesophageal reflux disease) Conclusion/Plan: Resume patient's home meds, PPI - Current Meds Current Meds: Current Medications Generic Name Dose Route Start Last Admin Trade Name Freq PRN Reason Stop Dose Admin Acetaminophen 650 mg 07/11/20 17:33 07/12/20 21:42 Acetaminophen 325 Mg Tablet PO 650 mg Q4HR PRN Administration Pain 1 to 4 Atorvastatin Calcium 10 mg 07/11/20 21:00 07/12/20 21:42 Atorvastatin 10 Mg Tablet PO 10 mg QPM EMANUEL Administration Benzonatate 100 mg 07/11/20 23:42 07/13/20 12:07 Benzonatate 100 Mg Capsule PO 100 mg TID PRN Administration Cough Dexamethasone 6 mg 07/12/20 09:00 07/13/20 09:15 Dexamethasone 4 Mg/Ml Vial IVP 6 mg DAILY EMANUEL Administration Enoxaparin Sodium 40 mg 07/12/20 09:00 07/13/20 09:14 Enoxaparin 40 Mg/0.4 Ml Syringe SUBQ 40 mg DAILY EMANUEL Administration Remdesivir 100 mg/ Sodium 100 mls @ 200 mls/hr 07/12/20 19:00 07/12/20 19:00 Chloride IV 07/15/20 19:29 Infused 1900 EMANUEL Infusion Sodium Chloride 1,000 mls @ 83.333 mls/hr 07/12/20 16:00 07/13/20 04:12 Normal Saline 0.9% IV 07/13/20 15:59 83.333 mls/hr .Q12H EMANUEL Administration Ibuprofen 400 mg 07/11/20 17:33 07/11/20 19:11 Ibuprofen 400 Mg Tablet PO 400 mg Q4HR PRN Administration Pain 1 to 4 Ondansetron HCl 4 mg 07/11/20 17:33 07/12/20 04:25 Ondansetron 4 Mg/2 Ml Vial IVP 4 mg Q6HR PRN Administration Nausea / Vomiting Oxycodone HCl 5 mg 07/11/20 17:33 07/12/20 05:20 Oxycodone 5 Mg Tablet PO 5 mg Q4HR PRN Administration Pain 5 to 7 Pantoprazole Sodium 40 mg 07/12/20 07:00 07/13/20 06:17 Pantoprazole 40 Mg Tablet PO 40 mg QDAC EMANUEL Administration Polyethylene Glycol 17 gm 07/13/20 09:00 07/13/20 09:14 Polyethylene Glycol 3350 17 Gm Packet PO 17 gm DAILY EMANUEL Administration Sodium Chloride 10 ml 07/12/20 01:00 07/13/20 09:15 Sodium Chloride Flush 0.9% 10 Ml Syringe IVP 10 ml 0100,0900,1700 EMANUEL Administration - Lab Result Fish Bone Diagrams: 07/13/20 04:50 07/13/20 04:50 - Additional Planning My Orders: My Active Orders 07/12/20 16:00 Sodium Chloride 0.9% [Normal Saline 0.9%] 1,000 ml IV 83.333 mls/hr 07/13/20 Lunch Soft Mechanical Diet [DIET] Subjective - Subjective Patient Reports: Feeling Better Objective Vital Signs: Vital Signs - 24 hr 07/12/20 07/12/20 07/12/20 16:16 21:34 21:38 Temperature 36.7 C 36.7 C Heart Rate [ 91 84 Brachial] Respiratory 20 19 Rate Blood Pressure 112/67 112/66 [Left Brachial artery] O2 Saturation 95 89 L 92 07/12/20 07/13/20 07/13/20 21:45 00:19 00:35 Temperature 36.4 C L Heart Rate [ 81 Brachial] Respiratory 16 Rate Blood Pressure 117/78 [Left Brachial artery] O2 Saturation 95 100 98 07/13/20 07/13/20 07/13/20 04:12 08:16 13:00 Temperature 36.5 C 36.4 C L 36.5 C Heart Rate [ 76 79 0 L Brachial] Respiratory 16 16 16 Rate Blood Pressure 110/62 107/59 L 110/62 [Left Brachial artery] O2 Saturation 95 99 95 Oxygen O2 Source Nasal cannula I&O (Last 24 Hrs): Intake and Output Totals x24h 07/11/20 07/12/20 07/13/20 23:59 23:59 23:59 Intake Total 2750 3974.443 1422.224 Output Total 800 3500 1900 Balance 1950 474.443 -477.776 General: Alert, Oriented x3, Cooperative, Mild distress HEENT: Atraumatic Neck: Supple Lymphatic: no adenopathy Neuro: Alert, Non Focal, Oriented Times 3 Cardiovascular: Regular rate, Normal S1, Normal S2 Respiratory: Chest non-tender, Other (mild respiratory distress) Abdomen: Normal bowel sounds, Soft, No tenderness Extremities: Normal pulses - Results Results: Laboratory Results WBC 7.0 x10^3/uL (4.8-10.8) 07/13/20 04:50 RBC 4.60 10^6/uL (4.20-5.40) 07/13/20 04:50 Hgb 13.0 g/dL (12.0-16.0) 07/13/20 04:50 Hct 41.5 % (37.0-47.0) 07/13/20 04:50 MCV 90.2 fL (81.0-99.0) 07/13/20 04:50 MCH 28.3 pg (27.0-31.0) 07/13/20 04:50 MCHC 31.3 g/dL (32.0-36.0) L 07/13/20 04:50 RDW 14.6 % (12.0-15.0) 07/13/20 04:50 Plt Count 211 10^3/uL (130-450) 07/13/20 04:50 MPV 11.1 fL (7.9-10.8) H 07/13/20 04:50 Neut # (Auto) 5.7 10^3/uL (1.5-6.6) 07/13/20 04:50 Lymph # (Auto) 0.5 10^3/uL (1.5-3.5) L 07/13/20 04:50 [place] # (Auto) 0.7 10^3/uL (0.0-1.0) 07/13/20 04:50 Eos # (Auto) 0.0 10^3/uL (0.0-0.7) 07/13/20 04:50 Baso # (Auto) 0.0 10^3/uL (0.0-0.1) 07/13/20 04:50 Absolute Nucleated RBC 0.00 x10^3/uL 07/13/20 04:50 Nucleated RBC % 0.0 /100WBC 07/13/20 04:50 Sodium 138 mmol/L (135-145) 07/13/20 04:50 Potassium 3.9 mmol/L (3.5-5.0) 07/13/20 04:50 Chloride 105 mmol/L (101-111) 07/13/20 04:50 Carbon Dioxide 24 mmol/L (21-32) 07/13/20 04:50 Anion Gap 9.0 (6-13) 07/13/20 04:50 BUN 14 mg/dL (6-20) 07/13/20 04:50 Creatinine 0.7 mg/dL (0.4-1.0) 07/13/20 04:50 Estimated GFR (MDRD) 88 (>89) L 07/13/20 04:50 Glucose 126 mg/dL (70-100) H 07/13/20 04:50 Calcium 8.1 mg/dL (8.5-10.3) L 07/13/20 04:50 Total Bilirubin 0.8 mg/dL (0.2-1.0) 07/11/20 16:42 AST 48 IU/L (10-42) H 07/11/20 16:42 ALT 26 IU/L (10-60) 07/11/20 16:42 Alkaline Phosphatase 44 IU/L (42-121) 07/11/20 16:42 Total Protein 6.3 g/dL (6.7-8.2) L 07/11/20 16:42 Albumin 2.9 g/dL (3.2-5.5) L 07/11/20 16:42 Globulin 3.4 g/dL (2.1-4.2) 07/11/20 16:42 Albumin/Globulin Ratio 0.9 (1.0-2.2) L 07/11/20 16:42 Lipase 26 U/L (22-51) 07/11/20 16:42 Urine Color YELLOW 07/11/20 19:20 Urine Clarity HAZY (CLEAR) 07/11/20 19:20 Urine pH 6.0 PH (5.0-7.5) 07/11/20 19:20 Ur Specific [place] 1.020 (1.002-1.030) 07/11/20 19:20 Urine Protein 30 mg/dL (NEGATIVE) H 07/11/20 19:20 Urine Glucose (UA) NEGATIVE mg/dL (NEGATIVE) 07/11/20 19:20 Urine Ketones 40 mg/dL (NEGATIVE) H 07/11/20 19:20 Urine Occult Blood SMALL (NEGATIVE) H 07/11/20 19:20 Urine Nitrite NEGATIVE (NEGATIVE) 07/11/20 19:20 Urine Bilirubin NEGATIVE (NEGATIVE) 07/11/20 19:20 Urine Urobilinogen 1 (NORMAL) E.U./dL (NORMAL) 07/11/20 19:20 Ur Leukocyte Esterase NEGATIVE (NEGATIVE) 07/11/20 19:20 Urine RBC 0-5 /HPF (0-5) 07/11/20 19:20 Urine WBC 0-3 /HPF (0-5) 07/11/20 19:20 Ur Squamous Epith Cells FEW Squamous (<= Few) 07/11/20 19:20 Urine Bacteria Few /HPF (None Seen) 07/11/20 19:20 Urine Mucus Few Strands 07/11/20 19:20 Ur Microscopic Review INDICATED 07/11/20 19:20 Urine Culture Comments NOT INDICATED 07/11/20 19:20 Ethyl Alcohol < 5.0 mg/dL 07/11/20 16:42 ABX Reporting Has patient been on IV antibiotics over the past 48 hours?: No Current Medications - Current Medications Current Medications: Active Medications Acetaminophen (Acetaminophen 325 Mg Tablet) 650 mg PO Q4HR PRN PRN Reason: Pain 1 to 4 Last Admin: 07/12/20 21:42 Dose: 650 mg Documented by: Atorvastatin Calcium (Atorvastatin 10 Mg Tablet) 10 mg PO QPM [facility] Last Admin: 07/12/20 21:42 Dose: 10 mg Documented by: Benzonatate (Benzonatate 100 Mg Capsule) 100 mg PO TID PRN PRN Reason: Cough Last Admin: 07/13/20 12:07 Dose: 100 mg Documented by: Dexamethasone (Dexamethasone 4 Mg/Ml Vial) 6 mg IVP DAILY [facility] Last Admin: 07/13/20 09:15 Dose: 6 mg Documented by: Enoxaparin Sodium (Enoxaparin 40 Mg/0.4 Ml Syringe) 40 mg SUBQ DAILY [facility] Last Admin: 07/13/20 09:14 Dose: 40 mg Documented by: Remdesivir 100 mg/ Sodium (Chloride) 100 mls @ 200 mls/hr IV 1900 [facility] Stop: 07/15/20 19:29 Last Infusion: 07/12/20 19:00 Dose: Infused Documented by: Sodium Chloride (Normal Saline 0.9%) 1,000 mls @ 83.333 mls/hr IV .Q12H [facility] Stop: 07/13/20 15:59 Last Admin: 07/13/20 04:12 Dose: 83.333 mls/hr Documented by: Ibuprofen (Ibuprofen 400 Mg Tablet) 400 mg PO Q4HR PRN PRN Reason: Pain 1 to 4 Last Admin: 07/11/20 19:11 Dose: 400 mg Documented by: Ondansetron HCl (Ondansetron Odt 4 Mg Tablet) 4 mg TL Q6HR PRN PRN Reason: Nausea / Vomiting Ondansetron HCl (Ondansetron 4 Mg/2 Ml Vial) 4 mg IVP Q6HR PRN PRN Reason: Nausea / Vomiting Last Admin: 07/12/20 04:25 Dose: 4 mg Documented by: Oxycodone HCl (Oxycodone 5 Mg Tablet) 5 mg PO Q4HR PRN PRN Reason: Pain 5 to 7 Last Admin: 07/12/20 05:20 Dose: 5 mg Documented by: Pantoprazole Sodium (Pantoprazole 40 Mg Tablet) 40 mg PO QDAC [facility] Last Admin: 07/13/20 06:17 Dose: 40 mg Documented by: Polyethylene Glycol (Polyethylene Glycol 3350 17 Gm Packet) 17 gm PO DAILY [facility] Last Admin: 07/13/20 09:14 Dose: 17 gm Documented by: Sodium Chloride (Sodium Chloride Flush 0.9% 10 Ml Syringe) 10 ml IVP PRN PRN PRN Reason: NEEDED PER PROVIDER ORDERS Sodium Chloride (Sodium Chloride Flush 0.9% 10 Ml Syringe) 10 ml IVP 0100,0900,1700 [facility] Last Admin: 07/13/20 09:15 Dose: 10 ml Documented by: Lovastatin [Altoprev] 20 mg PO DAILY 07/08/20 Omeprazole 40 mg PO DAILY 07/08/20
[2020-07-13] MEDS: REMDESIVIR 100MG VIAL 100 MG in SODIUM CHLORIDE 0.9% 100ML 100 ML IV SCH (18:56)
[2020-07-13] MEDS: SENNA 8.6 MG TABLET PO SCH (20:47)
[2020-07-13] MEDS: DOCUSATE SODIUM 250 MG CAPSULE PO SCH (20:47)
[2020-07-13] MEDS: ATORVASTATIN 10 MG TABLET PO SCH (20:47)
[2020-07-14] MEDS: SODIUM CHLORIDE FLUSH 0.9% 10 ML SYRINGE IVP SCH ×3 (00:26→16:07)
[2020-07-14 05:19] LABS: BASOPHILS % (AUTO) 0.1 %; HCT - HEMATOCRIT 40.1 % (37.0-47.0); HGB - HEMOGLOBIN 12.9 g/dL (12.0-16.0); LYMPHOCYTES # (AUTO) 0.8 10^3/uL (1.5-3.5); LYMPHOCYTES % (AUTO) 6.5 %; MEAN CORPUSCULAR HEMOGLOBIN 29.1 pg (27.0-31.0); MEAN CORPUSCULAR HGB CONC 32.2 g/dL (32.0-36.0); MEAN CORPUSCULAR VOLUME 90.3 fL (81.0-99.0); MEAN PLATELET VOLUME 10.7 fL (7.9-10.8); MONOCYTES % (AUTO) 8.2 %; NEUTROPHILS # (AUTO) 10.1 10^3/uL (1.5-6.6); NEUTROPHILS % (AUTO) 84.4 %; PLT - PLATELET COUNT 243 10^3/uL (130-450); RED BLOOD COUNT 4.44 10^6/uL (4.20-5.40); RED CELL DISTRIBUTION WIDTH 14.6 % (12.0-15.0); WHITE BLOOD COUNT 11.9 x10^3/uL (4.8-10.8)
[2020-07-14 05:27] LABS: CALCIUM 8.1 mg/dL (8.5-10.3); CREATININE 0.7 mg/dL (0.4-1.0)
[2020-07-14] MEDS: PANTOPRAZOLE 40 MG TABLET PO SCH (06:55)
[2020-07-14] MEDS: polyethylene glycoL 3350 17 GM PACKET PO SCH (08:31)
[2020-07-14] MEDS: SENNA 8.6 MG TABLET PO SCH (08:32)
[2020-07-14] MEDS: ENOXAPARIN 40 MG/0.4 ML SYRINGE SUBQ SCH (08:32)
[2020-07-14] MEDS: DOCUSATE SODIUM 250 MG CAPSULE PO SCH (08:33)
[2020-07-14] MEDS: DEXAMETHASONE 4 MG/ML VIAL IVP SCH (11:29)
[2020-07-14] MEDS: ONDANSETRON 4 MG/2 ML VIAL IVP PRN (11:38)
[2020-07-14] MEDS: cefTRIAXone 2 GM in SODIUM CHLORIDE 0.9% MINIBAG 100 ML IV SCH (11:43)
[2020-07-14] MEDS: SODIUM CHLORIDE 0.9% 1,000 ML IV SCH (11:54)
[2020-07-14] MEDS: AZITHROMYCIN INJ 500 MG in SODIUM CHLORIDE 0.9% 250 ML IV SCH (12:46)
--- NOTE | 2020-07-14 15:51 | PROVIDER PROGRESS NOTE ---
Assessment/Plan - Problem List (1) Respiratory failure with hypoxia Assessment/Plan: 07/14 pt report to me she feel better. pt is stable, she has 100% sat on 1 liter of O2, will try wane off O2 as possible. pt ate 100% of her diet. her WBC is slight elevated, add antibiotics. pt also report she had nausea and vomiting. continue closely monitor respiratory status with pulse oximeter I called pt's and update pt's conditions. I assessed pt again in the afternoon, pt report she have big bowel movement, no more nausea or vomiting, no abdominal pain. and she feel more better. pt has no respiratory distress now. continue Remdesivir, Decatron, and Lovenox, continue IVF, continue antiemesis PRN. 07/13 Patient reported she feel better, She asked advance her diet, She has more appetite. Her O2 sat is 95% on 1 L oxygen, Improved. We will continue Remdesivir, Decatron, and Lovenox, IVF, Continue supplemental oxygen as needed, continue closely monitor patient with vital signs. 07/12 pt has no respiratory distress at rest but distressful on exertion. now pt has 94% on 3 liter of O2, and comfortable rest in the bed. pt still some nausea and poor appetite now. will advance her diet as tolerated. continue Remdesivir, Decatron, and Lovenox, Continue supplemental oxygen as needed, continue closely monitor patient with vital signs. pt present shortness of breath specially at exertion. pt has 90% sats on room air with RR 32, and mild tachycardia, and pt is Covid 19 positive. 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 we will order Remdesivir, Decatron, and Lovenox, Supplemental oxygen as needed, intravenous IV fluids. isolation precaution per Covid 19. (3) HLD (hyperlipidemia) Conclusion/Plan: Will resume home statin. (4) GERD (gastroesophageal reflux disease) Conclusion/Plan: Resume patient's home meds, PPI - Current Meds Current Meds: Current Medications Generic Name Dose Route Start Last Admin Trade Name Freq PRN Reason Stop Dose Admin Acetaminophen 650 mg 07/11/20 17:33 07/12/20 21:42 Acetaminophen 325 Mg Tablet PO 650 mg Q4HR PRN Administration Pain 1 to 4 Atorvastatin Calcium 10 mg 07/11/20 21:00 07/13/20 20:47 Atorvastatin 10 Mg Tablet PO 10 mg QPM EMANUEL Administration Benzonatate 100 mg 07/11/20 23:42 07/13/20 16:56 Benzonatate 100 Mg Capsule PO 100 mg TID PRN Administration Cough Dexamethasone 6 mg 07/12/20 09:00 07/14/20 11:29 Dexamethasone 4 Mg/Ml Vial IVP 6 mg DAILY EMANUEL Administration Docusate Sodium 250 - 500 mg 07/13/20 21:00 07/14/20 08:33 Docusate Sodium 250 Mg Capsule PO 250 mg DAILY EMANUEL Administration Enoxaparin Sodium 40 mg 07/12/20 09:00 07/14/20 08:32 Enoxaparin 40 Mg/0.4 Ml Syringe SUBQ 40 mg DAILY EMANUEL Administration Remdesivir 100 mg/ Sodium 100 mls @ 200 mls/hr 07/12/20 19:00 07/13/20 19:26 Chloride IV 07/15/20 19:29 Infused 1900 EMANUEL Infusion Azithromycin 500 mg/ Sodium 250 mls @ 250 mls/hr 07/14/20 10:00 07/14/20 13:50 Chloride IV 07/16/20 10:59 Infused DAILY@1000 EMANUEL Infusion Ceftriaxone Sodium 2 gm/ 100 mls @ 200 mls/hr 07/14/20 09:00 07/14/20 12:20 Sodium Chloride IV Infused DAILY EMANUEL Infusion Sodium Chloride 1,000 mls @ 100 mls/hr 07/14/20 09:00 07/14/20 14:16 Normal Saline 0.9% IV 07/15/20 04:59 100 mls/hr .Q10H EMANUEL Infusion Ibuprofen 400 mg 07/11/20 17:33 07/11/20 19:11 Ibuprofen 400 Mg Tablet PO 400 mg Q4HR PRN Administration Pain 1 to 4 Ondansetron HCl 4 mg 07/11/20 17:33 07/14/20 11:38 Ondansetron 4 Mg/2 Ml Vial IVP 4 mg Q6HR PRN Administration Nausea / Vomiting Oxycodone HCl 5 mg 07/11/20 17:33 07/12/20 05:20 Oxycodone 5 Mg Tablet PO 5 mg Q4HR PRN Administration Pain 5 to 7 Pantoprazole Sodium 40 mg 07/12/20 07:00 07/14/20 06:55 Pantoprazole 40 Mg Tablet PO 40 mg QDAC EMANUEL Administration Polyethylene Glycol 17 gm 07/13/20 09:00 07/14/20 08:31 Polyethylene Glycol 3350 17 Gm Packet PO 17 gm DAILY EMANUEL Administration Senna 8.6 - 17.2 mg 07/13/20 21:00 07/14/20 08:32 Senna 8.6 Mg Tablet PO 8.6 mg DAILY EMANUEL Administration Sodium Chloride 10 ml 07/12/20 01:00 07/14/20 11:56 Sodium Chloride Flush 0.9% 10 Ml Syringe IVP 10 ml 0100,0900,1700 EMANUEL Administration - Lab Result Fish Bone Diagrams: 07/14/20 04:25 07/14/20 04:25 - Additional Planning My Orders: My Active Orders 07/14/20 09:00 Sodium Chloride 0.9% [Normal Saline 0.9%] 1,000 ml IV 100 mls/hr cefTRIAXone [Rocephin] 2 gm Sodium Chloride 0.9% Minibag [Normal Saline 0.9% Minibag] 100 ml IV DAILY 07/14/20 10:00 Azithromycin Inj [Zithromax Inj] 500 mg Sodium Chloride 0.9% [Normal Saline 0.9%] 250 ml IV DAILY@1000 07/14/20 17:00 Saccharomyces Boulardii [Florastor] 250 mg PO BIDWM Subjective - Subjective Patient Reports: Feeling Better Objective Vital Signs: Vital Signs - 24 hr 07/13/20 07/13/20 07/14/20 15:54 19:09 00:24 Temperature 36.9 C 36.8 C 36.8 C Heart Rate [ 83 88 79 Brachial] Heart Rate [ Carotid] Respiratory 18 20 18 Rate Blood Pressure 102/60 105/58 L 117/73 [Left Brachial artery] Blood Pressure [Right Brachial artery] O2 Saturation 95 95 99 07/14/20 07/14/20 07/14/20 06:06 08:29 12:47 Temperature 36.4 C L 36.5 C 36.7 C Heart Rate [ 79 84 Brachial] Heart Rate [ 89 Carotid] Respiratory 20 20 20 Rate Blood Pressure 100/55 L 114/69 [Left Brachial artery] Blood Pressure 106/61 [Right Brachial artery] O2 Saturation 95 93 100 Oxygen O2 Source Nasal cannula I&O (Last 24 Hrs): Intake and Output Totals x24h 07/12/20 07/13/20 07/14/20 23:59 23:59 23:59 Intake Total 3974.443 3262.224 1226.667 Output Total 3500 1900 1600 Balance 840.312 9904.224 -373.333 General: Alert, Oriented x3, Cooperative, No acute distress HEENT: Atraumatic Neck: Supple Lymphatic: no adenopathy Neuro: Alert, Non Focal, Oriented Times 3 Cardiovascular: Regular rate, Normal S1, Normal S2 Respiratory: Chest non-tender, No respiratory distress Abdomen: Normal bowel sounds, Soft Extremities: Normal pulses - Results Results: Laboratory Results WBC 11.9 x10^3/uL (4.8-10.8) H 07/14/20 04:25 RBC 4.44 10^6/uL (4.20-5.40) 07/14/20 04:25 Hgb 12.9 g/dL (12.0-16.0) 07/14/20 04:25 Hct 40.1 % (37.0-47.0) 07/14/20 04:25 MCV 90.3 fL (81.0-99.0) 07/14/20 04:25 MCH 29.1 pg (27.0-31.0) 07/14/20 04:25 MCHC 32.2 g/dL (32.0-36.0) 07/14/20 04:25 RDW 14.6 % (12.0-15.0) 07/14/20 04:25 Plt Count 243 10^3/uL (130-450) 07/14/20 04:25 MPV 10.7 fL (7.9-10.8) 07/14/20 04:25 Neut # (Auto) 10.1 10^3/uL (1.5-6.6) H 07/14/20 04:25 Lymph # (Auto) 0.8 10^3/uL (1.5-3.5) L 07/14/20 04:25 [place] # (Auto) 1.0 10^3/uL (0.0-1.0) 07/14/20 04:25 Eos # (Auto) 0.0 10^3/uL (0.0-0.7) 07/14/20 04:25 Baso # (Auto) 0.0 10^3/uL (0.0-0.1) 07/14/20 04:25 Absolute Nucleated RBC 0.00 x10^3/uL 07/14/20 04:25 Nucleated RBC % 0.0 /100WBC 07/14/20 04:25 Sodium 139 mmol/L (135-145) 07/14/20 04:25 Potassium 4.0 mmol/L (3.5-5.0) 07/14/20 04:25 Chloride 105 mmol/L (101-111) 07/14/20 04:25 Carbon Dioxide 27 mmol/L (21-32) 07/14/20 04:25 Anion Gap 7.0 (6-13) 07/14/20 04:25 BUN 16 mg/dL (6-20) 07/14/20 04:25 Creatinine 0.7 mg/dL (0.4-1.0) 07/14/20 04:25 Estimated GFR (MDRD) 88 (>89) L 07/14/20 04:25 Glucose 105 mg/dL (70-100) H 07/14/20 04:25 Calcium 8.1 mg/dL (8.5-10.3) L 07/14/20 04:25 Total Bilirubin 0.8 mg/dL (0.2-1.0) 07/11/20 16:42 AST 48 IU/L (10-42) H 07/11/20 16:42 ALT 26 IU/L (10-60) 07/11/20 16:42 Alkaline Phosphatase 44 IU/L (42-121) 07/11/20 16:42 Total Protein 6.3 g/dL (6.7-8.2) L 07/11/20 16:42 Albumin 2.9 g/dL (3.2-5.5) L 07/11/20 16:42 Globulin 3.4 g/dL (2.1-4.2) 07/11/20 16:42 Albumin/Globulin Ratio 0.9 (1.0-2.2) L 07/11/20 16:42 Lipase 26 U/L (22-51) 07/11/20 16:42 Urine Color YELLOW 07/11/20 19:20 Urine Clarity HAZY (CLEAR) 07/11/20 19:20 Urine pH 6.0 PH (5.0-7.5) 07/11/20 19:20 Ur Specific [place] 1.020 (1.002-1.030) 07/11/20 19:20 Urine Protein 30 mg/dL (NEGATIVE) H 07/11/20 19:20 Urine Glucose (UA) NEGATIVE mg/dL (NEGATIVE) 07/11/20 19:20 Urine Ketones 40 mg/dL (NEGATIVE) H 07/11/20 19:20 Urine Occult Blood SMALL (NEGATIVE) H 07/11/20 19:20 Urine Nitrite NEGATIVE (NEGATIVE) 07/11/20 19:20 Urine Bilirubin NEGATIVE (NEGATIVE) 07/11/20 19:20 Urine Urobilinogen 1 (NORMAL) E.U./dL (NORMAL) 07/11/20 19:20 Ur Leukocyte Esterase NEGATIVE (NEGATIVE) 07/11/20 19:20 Urine RBC 0-5 /HPF (0-5) 07/11/20 19:20 Urine WBC 0-3 /HPF (0-5) 07/11/20 19:20 Ur Squamous Epith Cells FEW Squamous (<= Few) 07/11/20 19:20 Urine Bacteria Few /HPF (None Seen) 07/11/20 19:20 Urine Mucus Few Strands 07/11/20 19:20 Ur Microscopic Review INDICATED 07/11/20 19:20 Urine Culture Comments NOT INDICATED 07/11/20 19:20 Ethyl Alcohol < 5.0 mg/dL 07/11/20 16:42 ABX Reporting Has patient been on IV antibiotics over the past 48 hours?: Yes Current Medications - Current Medications Current Medications: Active Medications Acetaminophen (Acetaminophen 325 Mg Tablet) 650 mg PO Q4HR PRN PRN Reason: Pain 1 to 4 Last Admin: 07/12/20 21:42 Dose: 650 mg Documented by: Atorvastatin Calcium (Atorvastatin 10 Mg Tablet) 10 mg PO QPM EMANUEL Last Admin: 07/13/20 20:47 Dose: 10 mg Documented by: Benzonatate (Benzonatate 100 Mg Capsule) 100 mg PO TID PRN PRN Reason: Cough Last Admin: 07/13/20 16:56 Dose: 100 mg Documented by: Dexamethasone (Dexamethasone 4 Mg/Ml Vial) 6 mg IVP DAILY [facility] Last Admin: 07/14/20 11:29 Dose: 6 mg Documented by: Docusate Sodium (Docusate Sodium 250 Mg Capsule) 250 - 500 mg PO DAILY [facility] Last Admin: 07/14/20 08:33 Dose: 250 mg Documented by: Enoxaparin Sodium (Enoxaparin 40 Mg/0.4 Ml Syringe) 40 mg SUBQ DAILY [facility] Last Admin: 07/14/20 08:32 Dose: 40 mg Documented by: Remdesivir 100 mg/ Sodium (Chloride) 100 mls @ 200 mls/hr IV 1900 [facility] Stop: 07/15/20 19:29 Last Infusion: 07/13/20 19:26 Dose: Infused Documented by: Azithromycin 500 mg/ Sodium (Chloride) 250 mls @ 250 mls/hr IV DAILY@1000 [facility] Stop: 07/16/20 10:59 Last Infusion: 07/14/20 13:50 Dose: Infused Documented by: Ceftriaxone Sodium 2 gm/ (Sodium Chloride) 100 mls @ 200 mls/hr IV DAILY [facility] Last Infusion: 07/14/20 12:20 Dose: Infused Documented by: Sodium Chloride (Normal Saline 0.9%) 1,000 mls @ 100 mls/hr IV .Q10H [facility] Stop: 07/15/20 04:59 Last Infusion: 07/14/20 14:16 Dose: 100 mls/hr Documented by: Ibuprofen (Ibuprofen 400 Mg Tablet) 400 mg PO Q4HR PRN PRN Reason: Pain 1 to 4 Last Admin: 07/11/20 19:11 Dose: 400 mg Documented by: Ondansetron HCl (Ondansetron Odt 4 Mg Tablet) 4 mg TL Q6HR PRN PRN Reason: Nausea / Vomiting Ondansetron HCl (Ondansetron 4 Mg/2 Ml Vial) 4 mg IVP Q6HR PRN PRN Reason: Nausea / Vomiting Last Admin: 07/14/20 11:38 Dose: 4 mg Documented by: Oxycodone HCl (Oxycodone 5 Mg Tablet) 5 mg PO Q4HR PRN PRN Reason: Pain 5 to 7 Last Admin: 07/12/20 05:20 Dose: 5 mg Documented by: Pantoprazole Sodium (Pantoprazole 40 Mg Tablet) 40 mg PO QDAC [facility] Last Admin: 07/14/20 06:55 Dose: 40 mg Documented by: Polyethylene Glycol (Polyethylene Glycol 3350 17 Gm Packet) 17 gm PO DAILY [facility] Last Admin: 07/14/20 08:31 Dose: 17 gm Documented by: Saccharomyces Boulardii (Saccharomyces Boulardii 250 Mg Capsule) 250 mg PO BIDWM [facility] Senna (Senna 8.6 Mg Tablet) 8.6 - 17.2 mg PO DAILY [facility] Last Admin: 07/14/20 08:32 Dose: 8.6 mg Documented by: Sodium Chloride (Sodium Chloride Flush 0.9% 10 Ml Syringe) 10 ml IVP PRN PRN PRN Reason: NEEDED PER PROVIDER ORDERS Sodium Chloride (Sodium Chloride Flush 0.9% 10 Ml Syringe) 10 ml IVP 0100,0900,1700 [facility] Last Admin: 07/14/20 11:56 Dose: 10 ml Documented by: Lovastatin [Altoprev] 20 mg PO DAILY 07/08/20 Omeprazole 40 mg PO DAILY 07/08/20
[2020-07-14] MEDS: BENZONATATE 100 MG CAPSULE PO PRN ×2 (16:07→21:09)
[2020-07-14] MEDS: SACCHAROMYCES BOULARDII 250 MG CAPSULE PO SCH (18:56)
[2020-07-14] MEDS: REMDESIVIR 100MG VIAL 100 MG in SODIUM CHLORIDE 0.9% 100ML 100 ML IV SCH (18:56)
[2020-07-14] MEDS: ATORVASTATIN 10 MG TABLET PO SCH (21:09)
[2020-07-15] MEDS: SODIUM CHLORIDE FLUSH 0.9% 10 ML SYRINGE IVP SCH ×3 (00:22→16:45)
[2020-07-15] MEDS: SODIUM CHLORIDE 0.9% 1,000 ML IV SCH (00:52)
[2020-07-15 05:05] LABS: BASOPHILS % (AUTO) 0.1 %; EOSINOPHILS % (AUTO) 0.1 %; HGB - HEMOGLOBIN 12.1 g/dL (12.0-16.0); LYMPHOCYTES # (AUTO) 0.7 10^3/uL (1.5-3.5); LYMPHOCYTES % (AUTO) 7.6 %; MEAN CORPUSCULAR HEMOGLOBIN 29.4 pg (27.0-31.0); MEAN CORPUSCULAR HGB CONC 32.7 g/dL (32.0-36.0); MEAN CORPUSCULAR VOLUME 89.8 fL (81.0-99.0); MEAN PLATELET VOLUME 10.6 fL (7.9-10.8); MONOCYTES # (AUTO) 0.9 10^3/uL (0.0-1.0); MONOCYTES % (AUTO) 10.3 %; NEUTROPHILS # (AUTO) 7.3 10^3/uL (1.5-6.6); NEUTROPHILS % (AUTO) 80.9 %; PLT - PLATELET COUNT 244 10^3/uL (130-450); RED BLOOD COUNT 4.12 10^6/uL (4.20-5.40); RED CELL DISTRIBUTION WIDTH 14.7 % (12.0-15.0); WHITE BLOOD COUNT 9.1 x10^3/uL (4.8-10.8)
[2020-07-15 05:11] LABS: CALCIUM 7.8 mg/dL (8.5-10.3); CREATININE 0.6 mg/dL (0.4-1.0)
[2020-07-15] MEDS: PANTOPRAZOLE 40 MG TABLET PO SCH (06:25)
[2020-07-15] MEDS: BENZONATATE 100 MG CAPSULE PO PRN ×2 (06:27→16:43)
[2020-07-15] MEDS: DEXAMETHASONE 4 MG/ML VIAL IVP SCH (09:06)
[2020-07-15] MEDS: SACCHAROMYCES BOULARDII 250 MG CAPSULE PO SCH ×2 (09:06→16:42)
[2020-07-15] MEDS: cefTRIAXone 2 GM in SODIUM CHLORIDE 0.9% MINIBAG 100 ML IV SCH (09:06)
[2020-07-15] MEDS: ENOXAPARIN 40 MG/0.4 ML SYRINGE SUBQ SCH (09:06)
[2020-07-15] MEDS: polyethylene glycoL 3350 17 GM PACKET PO SCH (09:07)
[2020-07-15] MEDS: DOCUSATE SODIUM 250 MG CAPSULE PO SCH (09:07)
[2020-07-15] MEDS: SENNA 8.6 MG TABLET PO SCH (09:07)
[2020-07-15] MEDS: AZITHROMYCIN INJ 500 MG in SODIUM CHLORIDE 0.9% 250 ML IV SCH (12:09)
[2020-07-15] MEDS: guaiFENesin/DEXTROMETHORPHAN 10 ML UDC PO PRN (16:42)
[2020-07-15] MEDS: REMDESIVIR 100MG VIAL 100 MG in SODIUM CHLORIDE 0.9% 100ML 100 ML IV SCH (18:53)
--- NOTE | 2020-07-15 19:06 | PROVIDER PROGRESS NOTE ---
Subjective - Prog Note Date Prog Note Date: 07/15/20 Prog Note Time: 19:05 - Subjective Pt reports feeling: Improved Subjective: She feels so much better. But she still hypoxic needing 1 L. When taken off oxygen she drops below 88%. Current Medications - Current Medications Current Medications: Active Medications Acetaminophen (Acetaminophen 325 Mg Tablet) 650 mg PO Q4HR PRN PRN Reason: Pain 1 to 4 Last Admin: 07/12/20 21:42 Dose: 650 mg Documented by: Atorvastatin Calcium (Atorvastatin 10 Mg Tablet) 10 mg PO QPM [facility] Last Admin: 07/14/20 21:09 Dose: 10 mg Documented by: Benzonatate (Benzonatate 100 Mg Capsule) 100 mg PO TID PRN PRN Reason: Cough Last Admin: 07/15/20 16:43 Dose: 100 mg Documented by: Hay Syrup (Hay Syrup 10 Ml Udc) 10 ml PO DAILY [facility] Dexamethasone (Dexamethasone 10 Mg/Ml Vial) 6 mg PO DAILY [facility] Docusate Sodium (Docusate Sodium 250 Mg Capsule) 250 - 500 mg PO DAILY [facility] Last Admin: 07/15/20 09:07 Dose: Not Given Documented by: Enoxaparin Sodium (Enoxaparin 40 Mg/0.4 Ml Syringe) 40 mg SUBQ DAILY [facility] Last Admin: 07/15/20 09:06 Dose: 40 mg Documented by: Guaifenesin (Guaifenesin/Dextromethorphan 10 Ml Udc) 10 ml PO Q6HR PRN PRN Reason: Cough Last Admin: 07/15/20 16:42 Dose: 10 ml Documented by: Remdesivir 100 mg/ Sodium (Chloride) 100 mls @ 200 mls/hr IV 1900 [facility] Stop: 07/15/20 19:29 Last Admin: 07/15/20 18:53 Dose: 200 mls/hr Documented by: Azithromycin 500 mg/ Sodium (Chloride) 250 mls @ 250 mls/hr IV DAILY@1000 [facility] Stop: 07/16/20 10:59 Last Infusion: 07/15/20 13:09 Dose: Infused Documented by: Ceftriaxone Sodium 2 gm/ (Sodium Chloride) 100 mls @ 200 mls/hr IV DAILY [facility] Last Infusion: 07/15/20 09:36 Dose: Infused Documented by: Ibuprofen (Ibuprofen 400 Mg Tablet) 400 mg PO Q4HR PRN PRN Reason: Pain 1 to 4 Last Admin: 07/11/20 19:11 Dose: 400 mg Documented by: Ondansetron HCl (Ondansetron Odt 4 Mg Tablet) 4 mg TL Q6HR PRN PRN Reason: Nausea / Vomiting Ondansetron HCl (Ondansetron 4 Mg/2 Ml Vial) 4 mg IVP Q6HR PRN PRN Reason: Nausea / Vomiting Last Admin: 07/14/20 11:38 Dose: 4 mg Documented by: Oxycodone HCl (Oxycodone 5 Mg Tablet) 5 mg PO Q4HR PRN PRN Reason: Pain 5 to 7 Last Admin: 07/12/20 05:20 Dose: 5 mg Documented by: Pantoprazole Sodium (Pantoprazole 40 Mg Tablet) 40 mg PO QDAC [facility] Last Admin: 07/15/20 06:25 Dose: 40 mg Documented by: Polyethylene Glycol (Polyethylene Glycol 3350 17 Gm Packet) 17 gm PO DAILY [facility] Last Admin: 07/15/20 09:07 Dose: Not Given Documented by: Saccharomyces Boulardii (Saccharomyces Boulardii 250 Mg Capsule) 250 mg PO BIDWM [facility] Last Admin: 07/15/20 16:42 Dose: 250 mg Documented by: Senna (Senna 8.6 Mg Tablet) 8.6 - 17.2 mg PO DAILY [facility] Last Admin: 07/15/20 09:07 Dose: Not Given Documented by: Sodium Chloride (Sodium Chloride Flush 0.9% 10 Ml Syringe) 10 ml IVP PRN PRN PRN Reason: NEEDED PER PROVIDER ORDERS Sodium Chloride (Sodium Chloride Flush 0.9% 10 Ml Syringe) 10 ml IVP 0100,0900,1700 [facility] Last Admin: 07/15/20 16:45 Dose: 10 ml Documented by: Lovastatin [Altoprev] 20 mg PO DAILY 07/08/20 Omeprazole 40 mg PO DAILY 07/08/20 Objective - Vital Signs/Intake & Output Reviewed Vital Signs: Yes Vital Signs: Vital Signs x48h Temp Pulse Resp BP BP Pulse Ox 07/15/20 17:00 37.5 C 73 16 114/77 94 07/15/20 12:15 37.9 C 82 18 111/61 92 Intake & Output: Intake & Output 07/12/20 07/13/20 07/14/20 07/15/20 23:59 23:59 23:59 23:59 Intake Total 3974.443 3262.224 3180.000 2500 Output Total 3500 1900 2500 1 Balance 073.088 5454.224 127.492 1224 - Objective General Appearance: positive: Alert Eyes Bilateral: positive: PERRL ENT: positive: No signs of dehydration Neck: positive: No JVD Respiratory: positive: No respiratory distress, Rales. negative: Wheezes, Rhonchi Cardiovascular: positive: Regular rate & rhythm. negative: Gallop/S4, Friction rub Abdomen: positive: Non-tender, Nml bowel sounds Skin: positive: Warm, Dry - Lab Results Fish Bones: 07/15/20 04:30 07/15/20 04:30 Other Labs: Lab Results x24hrs 07/15/20 07/15/20 Range/Units 04:30 04:30 WBC 9.1 (4.8-10.8) x10^3/uL RBC 4.12 L (4.20-5.40) 10^6/uL Hgb 12.1 (12.0-16.0) g/dL Hct 37.0 (37.0-47.0) % MCV 89.8 (81.0-99.0) fL MCH 29.4 (27.0-31.0) pg MCHC 32.7 (32.0-36.0) g/dL RDW 14.7 (12.0-15.0) % Plt Count 244 (130-450) 10^3/uL MPV 10.6 (7.9-10.8) fL Neut # (Auto) 7.3 H (1.5-6.6) 10^3/uL Lymph # (Auto) 0.7 L (1.5-3.5) 10^3/uL [place] # (Auto) 0.9 (0.0-1.0) 10^3/uL Eos # (Auto) 0.0 (0.0-0.7) 10^3/uL Baso # (Auto) 0.0 (0.0-0.1) 10^3/uL Absolute Nucleated RBC 0.00 x10^3/uL Nucleated RBC % 0.0 /100WBC Sodium 139 (135-145) mmol/L Potassium 4.0 (3.5-5.0) mmol/L Chloride 106 (101-111) mmol/L Carbon Dioxide 26 (21-32) mmol/L Anion Gap 7.0 (6-13) BUN 13 (6-20) mg/dL Creatinine 0.6 (0.4-1.0) mg/dL Estimated GFR (MDRD) 105 (>89) Glucose 100 (70-100) mg/dL Calcium 7.8 L (8.5-10.3) mg/dL ABX Reporting Has patient been on IV antibiotics over the past 48 hours?: Yes Assessment/Plan - Problem List (1) Respiratory failure with hypoxia Impression: She presented as shortness of breath especially exertion. Previous history of positive Covid as well as a who is positive for Covid. She was hypoxic and required 3 L. Over the last 24 hours she is gone from 3 L to 2 L to 1 L. She definitely is having improvement. I am hoping that she will be down to room air in the next 24 to 48 hours. We are considering sending her home on oxygen if she is doing well with ambulation, appetite, etc. (2) SARS-CoV-2 positive Conclusion/Plan: Patient is COVID-19 positive, patient's symptoms is likely caused by COVID-19, patient reports nausea, no vomiting. She will complete her remdesivir while here. She will be sent home on oral Decadron to complete Decadron therapy. Change Decadron to p.o. today. She did have some difficult IV access and a new IV was placed. (3) HLD (hyperlipidemia) Conclusion/Plan: Will resume home statin. (4) GERD (gastroesophageal reflux disease) Conclusion/Plan: Resume patient's home meds, PPI
[2020-07-15] MEDS: ATORVASTATIN 10 MG TABLET PO SCH (20:22)
[2020-07-16] MEDS: SODIUM CHLORIDE FLUSH 0.9% 10 ML SYRINGE IVP SCH ×2 (00:14→09:12)
[2020-07-16 05:09] LABS: BASOPHILS % (AUTO) 0.1 %; EOSINOPHILS % (AUTO) 0.3 %; HCT - HEMATOCRIT 37.4 % (37.0-47.0); HGB - HEMOGLOBIN 12.1 g/dL (12.0-16.0); LYMPHOCYTES # (AUTO) 0.8 10^3/uL (1.5-3.5); LYMPHOCYTES % (AUTO) 8.7 %; MEAN CORPUSCULAR HEMOGLOBIN 28.9 pg (27.0-31.0); MEAN CORPUSCULAR HGB CONC 32.4 g/dL (32.0-36.0); MEAN CORPUSCULAR VOLUME 89.5 fL (81.0-99.0); MEAN PLATELET VOLUME 10.4 fL (7.9-10.8); MONOCYTES # (AUTO) 0.9 10^3/uL (0.0-1.0); MONOCYTES % (AUTO) 9.7 %; NEUTROPHILS # (AUTO) 7.1 10^3/uL (1.5-6.6); NEUTROPHILS % (AUTO) 79.7 %; PLT - PLATELET COUNT 266 10^3/uL (130-450); RED BLOOD COUNT 4.18 10^6/uL (4.20-5.40); RED CELL DISTRIBUTION WIDTH 14.7 % (12.0-15.0); WHITE BLOOD COUNT 8.9 x10^3/uL (4.8-10.8)
[2020-07-16 05:16] LABS: CALCIUM 8.1 mg/dL (8.5-10.3); CREATININE 0.6 mg/dL (0.4-1.0); POTASSIUM 4.2 mmol/L (3.5-5.0)
[2020-07-16] MEDS: PANTOPRAZOLE 40 MG TABLET PO SCH (06:34)
[2020-07-16] MEDS: BENZONATATE 100 MG CAPSULE PO PRN (08:32)
[2020-07-16] MEDS: SACCHAROMYCES BOULARDII 250 MG CAPSULE PO SCH (08:32)
[2020-07-16] MEDS: ENOXAPARIN 40 MG/0.4 ML SYRINGE SUBQ SCH (08:32)
[2020-07-16] MEDS: guaiFENesin/DEXTROMETHORPHAN 10 ML UDC PO PRN (08:32)
[2020-07-16] MEDS: polyethylene glycoL 3350 17 GM PACKET PO SCH (08:33)
[2020-07-16] MEDS: DOCUSATE SODIUM 250 MG CAPSULE PO SCH (08:33)
[2020-07-16] MEDS: SENNA 8.6 MG TABLET PO SCH (08:33)
[2020-07-16] MEDS ORDERED: CHERRY SYRUP 10 ML UDC PO SCH (09:00)
[2020-07-16] MEDS ORDERED: DEXAMETHASONE 10 MG/ML VIAL PO SCH (09:00)
[2020-07-16] MEDS: cefTRIAXone 2 GM in SODIUM CHLORIDE 0.9% MINIBAG 100 ML IV SCH (09:11)
--- NOTE | 2020-07-16 09:12 | Discharge Plan ---
Discharge Plan Problem Reviewed?: Yes Disposition: Home, Self Care Condition: Fair Prescriptions: Dexamethasone [Decadron] 6 mg PO DAILY #4 tablet Diet: Regular Activity Restrictions: Activity as Tolerated Shower Restrictions: No Driving Restrictions: No Instruction Topics: Saccharomyces boulardii Florastor oral dosage forms, Ceftriaxone injection, Azithromycin for infusion, Dexamethasone oral solution, GERD, COVID-19 [facility], COVID-19 [facility] Department Statement, Flu and Cold: Nutrition, Prevention and Treatment Tips Health Concerns: You presented to the hospital emergency room with shortness of breath, the known positive Covid status from July 09. Your had been positive for Covid on July 03. Your cough was pretty severe and doing any little activity made you very short of breath. In the emergency room you had a high heart rate, low oxygen, but normal blood pressure. Chest x-ray showed Covid pneumonia which is "an atypical pneumonia". You were treated with remdesivir, and Decadron which is the current standard treatment for Covid pneumonia. 2 days into this you had a mildly elevated white cell count so we treated you for bacterial pneumonia with an abundance of caution to make sure you are not developing a secondary pneumonia. You are now stable enough to go home. Your oxygen level is still low but you are ambulating in the room, eating, and we feel that you are safe to go home. Plan of Treatment: 1. We will not be sending you home with oral antibiotics since you had enough treatment during her stay. 2. You still need 4 more days of Decadron to complete the total treatment for Covid. 3. You are still very tired. Having low oxygen. So we will be sending you home with oxygen. I do not think this will be more than 1 to 2 weeks of therapy. 4. I do not want you to return to work until July 31. Please see your primary care provider in follow-up. If you are still exhausted, and do not have much energy, he may extend your disability longer. Care Goals: To no longer need oxygen, and to return to normal daily activities. Assessment: Patient understands treatment plan, has stated her goals, and will follow through. She needs a letter for work and I will be doing that for her No Smoking: If you smoke, Please STOP! Call for help. Follow-up with: Junior Johnson DO [Primary Care Provider] -
[2020-07-16 10:53] VITALS: BP 124/65
[2020-07-16] MEDS: AZITHROMYCIN INJ 500 MG in SODIUM CHLORIDE 0.9% 250 ML IV SCH (11:11)
--- NOTE | 2020-07-16 16:04 | DISCHARGE SUMMARY ---
"Discharge Summary Admit Date: 07/11/20 Discharge Date: 07/16/20 Discharging Provider: Tameka Boles MD Primary Care Provider: Junior Johnson MD Code Status: Attempt Resuscitation Condition at Discharge: Fair Discharge Disposition: 01 Home, Self Care - DIAGNOSES Discharge Diagnoses with Status of Each Condition: 1. Acute respiratory failure with hypoxia 2. SARS Covid-19 pneumonia 3. Hyperlipidemia 4. GERD - HPI History of Present Illness: This is a 55-years old female with a past medical history significant for hyperlipidemia, GERD, who present ER complain of shortness of breath, worsening Covid symptoms. Patient report last Friday she present to ER showing shortness breathing then she tested positive for the COVID-19. Her was Positive in July 03, then her son show positive. Her all 13 colleague were Covid 19 positive after one person traveled back from [place]. she report she had fever, chill and night sweating at home. her and her son both became better but she continue shortness of breath and worsening symptoms. she present cough, specially felt significant shortness of breath when she was at exertion. she report nausea but no vomiting, loss of appetite. She denies chest pain, abdominal pain, vomiting. IN ER, she is afebrile, HR is 107, normative blood pressure, RR 32 and 90% sats on room air. Route lab test show pt was Covid 19 positive at 07/08/20, other CBC and CMP are unremarkable. CXR reveals atypical pneumonia appearance. Discussed the care goal with pt, pt request full code. - Past Medical History Cardiovascular: reports: High cholesterol GI: reports: GERD MRSA Hx?: No - CONSULTS | PROCEDURES Procedures: Chest x-ray with lung, parenchyma having mild edema. This is increased alveolar edema from a comparison study 3 days prior to admission. Atypical pneumonia. - HOSPITAL COURSE Hospital Course: She was placed on IV remdesivir and completed a full 5-day course. She was also given IV Decadron and then transition to oral Decadron and will complete that w ith 4 more days of Decadron at home. She is still hypoxic at discharge. She really wants to go home and is willing to go home on home O2. Room air saturations at rest are 88%. At rest on 2 L her oxygen improves to 95%. With ambulation 2 L nasal cannula her O2 sats are 90%. I am ordering home oxygen at 2 L/min continuously to treat her COVID-19 and resulting hypoxia. At discharge her temperature is 36.7, pulse 83, blood pressure 124/65. Respirations are 18 and unlabored and she is 92% saturated 2 L. She is sitting comfortably in her chair, watching TV, is able to now start eating a regular diet and keep food down with a good appetite. She has faint crackles occasionally. They come and go depending on her cough. Cough is mild and slightly congested. But there is no respiratory distress, no increased respiratory effort. She has a regular rate and rhythm without a murmur. The abdomen is benign. Extremities are without edema. Greater than 30 minutes was spent coordinating discharge. I have sent her home with a note for return to work 2 weeks from now. I have asked her to please see her primary care provider and if she needs to have her off time extended to please get that note from her primary care provider. - ALLERGIES Allergies/Adverse Reactions: Allergies Allergy/AdvReac Type Severity Reaction Status Date / Time No Known Drug Allergies Allergy Verified 07/08/20 15:18 - MEDICATIONS Home Medications: Ambulatory Orders Medication Instructions Recorded Confirmed HYDROcod/ACETAM 5/325 [[place] 5/325] 1 - 2 tab PO Q6H PRN #15 tablet 07/08/20 07/11/20 Ibuprofen [Motrin] 800 mg PO Q8H PRN #30 tablet 07/08/20 07/11/20 Lovastatin [Altoprev] 20 mg PO DAILY 07/08/20 07/11/20 Omeprazole 40 mg PO DAILY 07/08/20 07/11/20 Hay Syrup 10 ml PO DAILY 07/16/20 Dexamethasone [Decadron] 6 mg PO DAILY #4 tablet 07/16/20 guaiFENesin/DEXTROMETHORPHAN 10 ml PO Q6HR PRN 07/16/20 [Robitussin Dm] - LABS Result Diagrams: 07/16/20 04:35 07/16/20 04:35"
== END 2020-07-16 12:28 | disposition home or self-care (01) | DRG 177 ==
LOC: ED 15:57 → MS3 17:33
PROVIDERS: ADMIT Specialist; ATTEND Specialist
PROC: XW033E5 Introduction of Remdesivir Anti-infective into Peripheral Vein, Percutaneous Approach, New Technology Group 5 (ICD-10-PCS; principal; 2020-07-11)
DX: U07.1 COVID-19 (principal); J12.82 Pneumonia due to coronavirus disease 2019; J96.01 Acute respiratory failure with hypoxia; E78.5 Hyperlipidemia, unspecified; K21.9 Gastro-esophageal reflux disease without esophagitis; R11.2 Nausea with vomiting, unspecified
CPT/HCPCS: 36415; 71045; 80048; 80053; 80320; 81001; 83690; 85025; 94761; 96374; 99284; 99285; A9270; C9399; J1650; 81003; 87086

== ENCOUNTER 2022-11-15 08:53 | Outpatient (CLI) | payer OTHER ==
--- NOTE | 2022-11-15 10:14 | XRAY Report ---
PROCEDURE: Knee 4 View BILAT INDICATIONS: PAIN IN LEFT KNEE TECHNIQUE: 7 views of the bilateral knee(s) were acquired. COMPARISON: None. FINDINGS: Bones: No fractures or dislocations. No suspicious bony lesions. Mild degenerative changes with mil d marginal spurring and medial joint space narrowing bilaterally. Soft tissues: No knee joint effusion. No suspicious soft tissue calcifications or masses. IMPRESSION: Mild degenerative changes of the knees, most pronounced in the medial compartments bilaterally. Reviewed by: Juan Maldonado MD on 11/15/2022 10:12 AM PDT Approved by: Juan Maldonado MD on 11/15/2022 10:12 AM PDT Station ID: [id number]
== END 2022-11-15 08:54 | disposition home or self-care (01) ==
LOC: DI 08:53
PROVIDERS: ATTEND Nurse Practitioner Family
DX: M17.0 Bilateral primary osteoarthritis of knee (principal)